=== PATIENT | female | born 1970 | race Caucasian/White ===

== ENCOUNTER 2017-05-25 15:19 | Inpatient (IN) | payer OTHER ==
[2017-05-25] MEDS ORDERED: NITROGLYCERIN-D5W PMX 50 MG in DEXTROSE/WATER 1 250ML.BAG IV STA (15:25)
[2017-05-25] MEDS ORDERED: HEPARIN SODIUM,PORCINE 5,000 UNIT/ML 1 ML VIAL IV STA (15:25)
[2017-05-25] MEDS ORDERED: ATORVASTATIN 80 MG TAB PO STA (15:27)
[2017-05-25 15:33] LABS: Basophils # (A) 0.1 k/uL (0-0.2); Basophils % (A) 1 %; CH 32.5; CHCM 34.5; Eosinophils # (A) 0.1 k/uL (0-0.7); Eosinophils % (A) 2 %; HCT 43.3 % (34.0-46.0); HDW 2.47; HGB 14.9 gm/dL (11.4-16.0); Luc % (Auto) 2; Lymphocytes # (A) 2.4 k/uL (1.0-4.8); Lymphocytes % (A) 29 %; MCH 32.7 pg (25.0-35.0); MCHC 34.5 g/dL (31.0-37.0); MCV 94.8 fL (80.0-100.0); Mean Platelet Volume 7.8; Monocytes # (A) 0.5 k/uL (0-1.0); Monocytes % (A) 6 %; Neutrophils # (A) 5.1 k/uL (1.3-7.7); Neutrophils % (A) 61 %; RBC 4.57 m/uL (3.80-5.40); RDW 13.1 % (11.5-15.5); WBC 8.4 k/uL (3.8-10.6); WBC (Perox) 8.54
--- NOTE | 2017-05-25 15:39 | ED ---
Chest Pain HPI - General Chief Complaint: Chest Pain Stated Complaint: Chest Pain Time Seen by Provider: 05/25/17 15:19 Source: patient, RN notes reviewed Mode of arrival: EMS Limitations: no limitations - History of Present Illness Initial Comments: This a 46-year-old female history of thyroid disease who is a smoker of 4 cigarettes a day who states he had the onset at about 12 noon yesterday of retrosternal chest pain. She states it was low-grade yesterday but got much worse today associated with nausea she was given 4 g of Zofran by EMS the pain was 10/10 severity he got better with nitro 2 was down to 8. The pain was retrosternal tightness and pressure. No overt fevers or chills. The patient that was her anxiety acting up and did not seek treatment for it. There is a family history of heart disease at early age. She has no known heart disease of her self up until today's episode. EKGs done by EMS showed ST elevation in leads II, III, and F aVF with reciprocal changes in aVL. MD Complaint: chest pain - Related Data Home Medications Medication Instructions Recorded Confirmed Ibuprofen [Motrin] 600 mg PO Q8HR PRN 04/16/16 04/16/16 Levothyroxine Sodium [Synthroid] 112 mcg PO DAILY 04/16/16 04/16/16 Lisinopril [Zestril] 20 mg PO DAILY 04/16/16 04/16/16 Ondansetron [Zofran] 4 mg PO Q12HR PRN 04/16/16 04/16/16 diphenhydrAMINE HCL [Benadryl] 25 mg PO Q8H PRN 04/16/16 04/16/16 Previous Rx's Medication Instructions Recorded Cyclobenzaprine [Flexeril] 10 mg PO TID #20 tab 04/16/16 Ibuprofen [Motrin] 600 mg PO Q6HR PRN #40 day 04/16/16 Ondansetron Odt [Zofran ODT] 4 mg PO Q8HR PRN #15 tab 04/16/16 Allergies Allergy/AdvReac Type Severity Reaction Status Date / Time No Known Allergies Allergy Verified 05/25/17 15:26 Review of Systems ROS Statement: Those systems with pertinent positive or pertinent negative responses have been documented in the HPI. ROS Other: All systems not noted in ROS Statement are negative. EKG Findings - EKG Results: EKG: interpreted by [facility], sinus rhythm (Sinus rhythm rate of 81. Interval 128 QRS duration 82 QT since QTC of/473 ST elevation in leads II, III, and F aVF with reciprocal aVL ST depression.) Past Medical History Past Medical History: Thyroid Disorder History of Any Multi-Drug Resistant Organisms: None Reported Past Surgical History: Orthopedic Surgery Additional Past Surgical History / Comment(s): thyroidectomy Past Psychological History: Anxiety Smoking Status: Current every day smoker Past Alcohol Use History: Rare Past Drug Use History: None Reported General Exam - General Exam Comments Initial Comments: This is a well-developed well-nourished awake alert oriented history female she is very anxious and appears to be in distress Limitations: no limitations General appearance: alert, anxious, in distress Head exam: Present: atraumatic, normocephalic, normal inspection Eye exam: Present: normal appearance, PERRL, EOMI. Absent: scleral icterus, conjunctival injection, periorbital swelling ENT exam: Present: normal exam, mucous membranes moist Neck exam: Present: normal inspection. Absent: tenderness, meningismus, lymphadenopathy Respiratory exam: Present: normal lung sounds bilaterally. Absent: respiratory distress, wheezes, rales, rhonchi, stridor Cardiovascular Exam: Present: regular rate, normal rhythm, normal heart sounds. Absent: systolic murmur, diastolic murmur, rubs, gallop, clicks GI/Abdominal exam: Present: soft, normal bowel sounds. Absent: distended, tenderness, guarding, rebound, rigid Extremities exam: Present: normal inspection, full ROM, normal capillary refill. Absent: tenderness, pedal edema, joint swelling, calf tenderness Back exam: Present: normal inspection Neurological exam: Present: alert, oriented X3, CN II-XII intact Psychiatric exam: Present: normal affect, normal mood Skin exam: Present: warm, dry, intact, normal color. Absent: rash Course Vital Signs 05/25/17 05/25/17 05/25/17 15:22 15:26 15:31 Temperature 97 F L Pulse Rate 85 87 84 Respiratory 18 20 18 Rate Blood Pressure 181/101 171/101 169/119 O2 Sat by Pulse 97 98 99 Oximetry 05/25/17 05/25/17 05/25/17 15:39 15:43 15:50 Temperature Pulse Rate 79 88 Respiratory 18 20 Rate Blood Pressure 176/115 170/113 170/117 O2 Sat by Pulse 96 96 Oximetry - Reevaluation(s) Reevaluation #1: 05/25/17 15:39 A STEMI alert was immediately called upon arrival. I did discuss the case with Dr. Wei. [facility] has been called and the patient will go to [facility]. I also did discuss the case with Dr. Magana the hospitalist with the patient will be admitted to this time patient does not have a current staff physician. Reevaluation #2: 05/25/17 15:45 The patient is still having 10/10 chest pain the nitroglycerin he has been increased. Dr. Magana has come to the emergency department to evaluate the patient. Chest Pain MDM - MDM I did review the imaging and report no acute findings. Patient did go to the [facility]. Critical Care Time Critical Care Time: Yes Critical Care Time: 31 minutes of critical care time which includes monitoring the initial EMS run and discussed with paramedics history physical labs x-rays on the patient reevaluation patient several occasions for responsive therapy. Discussion with the admitting physician as well as customer project manager. Documentation of the above. Disposition Clinical Impression: ST elevation myocardial infarction (STEMI), Chest pain Disposition: ADMITTED IP TO THIS HOSP Condition: Critical Referrals: Nonstaff,Physician [Primary Care Provider] - 1-2 days
[2017-05-25 15:42] LABS: Partial Thromboplastin Time 26.4 sec (22.0-30.0); Prothrombin Time 10.2 sec (9.0-12.0)
[2017-05-25 15:43] LABS: ALT 24 U/L (9-52); AST 16 U/L (14-36); Alkaline Phosphatase 84 U/L (38-126); Anion Gap 11 mmol/L; Blood Urea Nitrogen 9 mg/dL (7-17); Calcium 9.3 mg/dL (8.4-10.2); Carbon Dioxide 22 mmol/L (22-30); Chloride 106 mmol/L (98-107); Glucose 111 mg/dL (74-99); Non-African American GFR(MDRD) >60 (>60 ml/min/1.73 sqM); Potassium 4.4 mmol/L (3.5-5.1); Sodium 139 mmol/L (137-145); Total Bilirubin 0.7 mg/dL (0.2-1.3); Total Protein 7.7 g/dL (6.3-8.2)
--- NOTE | 2017-05-25 15:44 | XR ---
EXAMINATION TYPE: XR chest 1V DATE OF EXAM: 05/25/2017 COMPARISON: NONE HISTORY: Chest pain radiating to the lower extremities. TECHNIQUE: Single frontal view of the chest is obtained. FINDINGS: There is no focal air space opacity, pleural effusion, or pneumothorax seen. The cardiac silhouette size is within normal limits. The osseous structures are intact. IMPRESSION: No acute cardiopulmonary process.
[2017-05-25] MEDS ORDERED: LIDOCAINE 2% INJ 20 MG/ML (20 ML MDV) ONE (16:00)
[2017-05-25] MEDS ORDERED: MIDAZOLAM 2 MG/2 ML VIAL IV ONE (16:02)
[2017-05-25 16:03] LABS: Creatine Kinase 58 U/L (30-135)
[2017-05-25] MEDS ORDERED: SODIUM CHLORIDE 0.9% 500 ML IV ONE ×2 (16:04→16:39)
[2017-05-25] MEDS ORDERED: MIDAZOLAM 2 MG/2 ML VIAL ONE (16:04)
[2017-05-25] MEDS ORDERED: LIDOCAINE 2% INJ 20 MG/ML SQ ONE (16:07)
[2017-05-25] MEDS ORDERED: HYDROmorphone 2 MG/ML 1 ML SYRINGE IV ONE (16:09)
[2017-05-25] MEDS ORDERED: ASPIRIN 81 MG PO STA (16:09)
[2017-05-25] MEDS ORDERED: HYDROmorphone 2 MG/ML 1 ML SYRINGE ONE (16:11)
[2017-05-25] MEDS ORDERED: BIVALIRUDIN BOLUS 250 MG/50 ML IV ONE (16:15)
[2017-05-25 16:16] LABS: Creatine Kinase MB <0.2 ng/mL (0.0-2.4)
[2017-05-25] MEDS ORDERED: BIVALIRUDIN 250 MG in SODIUM CHLORIDE 0.9% 50 ML IV ONE (16:17)
[2017-05-25] MEDS ORDERED: CLOPIDOGREL 75 MG TAB PO ONE (16:20)
[2017-05-25] MEDS ORDERED: CLOPIDOGREL 75 MG TAB ONE (16:20)
--- NOTE | 2017-05-25 16:29 | P.HPIM ---
History of Present Illness H&P Date: 05/25/17 Chief Complaint: chest pain This a 46-year-old occasion female history of thyroid disease, hypertension who is a smoker of 4 cigarettes a day who states he had the onset at about 12 noon yesterday of retrosternal left-sided chest pain described as severe chest pressure or radiation to her neck and back that began at rest and was not associated with exertion. She states it was low-grade yesterday but got much worse today associated with nausea and shortness of breath she was given 4 g of Zofran by EMS the pain was 10/10 severity he got better with nitro 2 was down to 8. The pain was retrosternal tightness and pressure. No overt fevers or chills. The patient that was her anxiety acting up and did not seek treatment for it. There is a family history of heart disease at early age. Some generalized weakness, denies palpitations or presyncope She has no known heart disease of her self up until today's episode. EKGs done by EMS showed ST elevation in leads II, III, and F aVF with reciprocal changes in aVL. Review of Systems All other 14 point review of systems negative except per HPI Past Medical History Past Medical History: Thyroid Disorder History of Any Multi-Drug Resistant Organisms: None Reported Past Surgical History: Orthopedic Surgery Additional Past Surgical History / Comment(s): thyroidectomy Past Psychological History: Anxiety Smoking Status: Current every day smoker Past Alcohol Use History: Rare Past Drug Use History: None Reported Medications and Allergies Home Medications Medication Instructions Recorded Confirmed Type Levothyroxine Sodium [Synthroid] 112 mcg PO DAILY 04/16/16 05/25/17 History Lisinopril [Zestril] 20 mg PO DAILY 04/16/16 05/25/17 History Allergies Allergy/AdvReac Type Severity Reaction Status Date / Time No Known Allergies Allergy Verified 05/25/17 15:26 Physical Exam Vitals: Vital Signs Temp Pulse Resp BP Pulse Ox 05/25/17 15:50 170/117 05/25/17 15:43 88 20 170/113 96 05/25/17 15:39 79 18 176/115 96 05/25/17 15:31 84 18 169/119 99 05/25/17 15:26 87 20 171/101 98 05/25/17 15:22 97 F L 85 18 181/101 97 Intake and Output 05/25/17 05/25/17 05/25/17 06:59 14:59 22:59 Intake Total 0.2 Balance 0.2 Intake: Intake, IV Titration 0.2 Amount Nitroglycerin-D5w Pmx 50 0.2 mg In Dextrose/Water 1 250ml.bag @ 5 MCG/MIN 1.5 mls/hr IV .Q24H STA Rx#: [id number] Other: Weight 82.1 kg Patient Weight 05/26/17 06:59 Weight 82.1 kg Constitutional: Moderate distress due to pain conversant, pleasant Eyes: Anicteric sclerae, moist conjunctiva, no lid-lag, PERRLA ENMT: NC/AT,Oropharynx clear, no erythema, exudates Neck:Supple, FROM, no masses, or JVD, No carotid bruits; No thyromegaly Lungs: Clear to auscultation, Clear to percussion, Normal respiratory effort, no accessory muscle use Cardiovascular: Heart regular in rate and rhythm, No murmurs, gallops, or rubs no peripheral edema Abdominal: Soft Nontender, nom distended, no guarding, no rebound or rigidity, Normoactive bowel sounds No hepatomegaly, No splenomegaly, No palpable mass No abdominal wall hernia noted Skin: Normal temperature, tone, texture, turgor, No induration No subcutaneous nodules, No rash, lesions, No ulcers Extremities:No digital cyanosis No clubbing, Pedal pulses intact and symmetrical Radial pulses intact and symmetrical Normal gait and station, No calf tenderness Psychiatric: Alert and oriented to person, place and time, Appropriate affect Intact judgement Neuro: Muscles Strength 5/5 in all 4 extremities, Sensation to light touch grossly present throughout, Cranial nerves II-XII grossly intact. No focal sensory deficits Results CBC & Chem 7: 05/25/17 15:27 05/25/17 15:27 Labs: Abnormal Lab Results - Last 24 Hours (Table) 05/25/17 Range/Units 15:27 Glucose 111 H (74-99) mg/dL Assessment and Plan (1) ST elevation myocardial infarction (STEMI) Narrative/Plan: Acute coronary syndrome ST elevation ME * elevation in leads II, III, and F aVF with reciprocal aVL ST depression, troponins pending * The patient received aspirin and nitroglycerin on route and is currently on a nitroglycerin drip and a heparin bolus interventional cardiology Dr. Wei, scheduled to take the patient to the kiln labourer * Continue STEMI orders post cath in the ICU * We'll initiate beta shazia therapy, continue aspirin and statin therapy Status: Acute (2) Accelerated hypertension Status: Acute (3) Acute headache Status: Acute (4) Smoking Status: Chronic (5) Hypothyroid Status: Chronic Plan: Continue to follow clinical course Time with Patient: Greater than 30
[2017-05-25] MEDS: NITROGLYCERIN 1000MCG/10ML SYRINGE INTRACORON ONE ×2 (16:30→16:45)
[2017-05-25] MEDS ORDERED: IOHEXOL 350 MG/ML 125ML BOTTLE INJ ONE (16:58)
[2017-05-25] MEDS ORDERED: ATROPINE SULFATE 0.1 MG/ML 10ML SYRINGE IV PRN (17:08)
[2017-05-25] MEDS ORDERED: MAG HYDROX/AL HYDROX/SIMETH 30 ML CUP PO PRN (17:08)
[2017-05-25] MEDS ORDERED: RX INFO: IV CONTRAST WAS GIVEN 1 EACH MISC MISCELLANE PRN (17:08)
[2017-05-25] MEDS ORDERED: NITROGLYCERIN SL TABS 0.4 MG TAB SUBLINGUAL PRN (17:08)
--- NOTE | 2017-05-25 17:14 | P.CRDCN ---
History of Present Illness Consult date: 05/25/17 Chief complaint: Chest discomfort History of present illness: This is a pleasant 46-year-old female patient with a past medical history significant for hypertension, dyslipidemia, and history of smoking, presented to the emergency room complaining of chest discomfort. The patient was in her usual state of health did about 2 days ago when she started experiencing chest discomfort as a pressure across her chest. The symptoms got worse today and she decided to come to the emergency room. She was found to be in acute inferior ST elevation myocardial infarction. In review of that she underwent an emergent heart catheterization which showed acute total occlusion of the left circumflex which was stented with a good angiographic results. Beside that, she was found to have intermediate to severe disease involving the RCA as well as LAD. By the end of the procedure the patient was completely pain-free. Past Medical History Past Medical History: Thyroid Disorder History of Any Multi-Drug Resistant Organisms: None Reported Past Surgical History: Orthopedic Surgery Additional Past Surgical History / Comment(s): thyroidectomy Past Psychological History: Anxiety Smoking Status: Current every day smoker Past Alcohol Use History: Rare Past Drug Use History: None Reported Medications and Allergies Home Medications Medication Instructions Recorded Confirmed Type Levothyroxine Sodium [Synthroid] 112 mcg PO DAILY 04/16/16 05/25/17 History Lisinopril [Zestril] 20 mg PO DAILY 04/16/16 05/25/17 History Allergies Allergy/AdvReac Type Severity Reaction Status Date / Time No Known Allergies Allergy Verified 05/25/17 15:26 Physical Exam Vitals: Vital Signs Temp Pulse Resp BP Pulse Ox 05/25/17 15:50 170/117 05/25/17 15:43 88 20 170/113 96 05/25/17 15:39 79 18 176/115 96 05/25/17 15:31 84 18 169/119 99 05/25/17 15:26 87 20 171/101 98 05/25/17 15:22 97 F L 85 18 181/101 97 Intake and Output 05/25/17 05/25/17 05/25/17 06:59 14:59 22:59 Intake Total 400.2 Balance 400.2 Intake: IV 400 Intake, IV Titration 0.2 Amount Nitroglycerin-D5w Pmx 50 0.2 mg In Dextrose/Water 1 250ml.bag @ 5 MCG/MIN 1.5 mls/hr IV .Q24H STA Rx#: [id number] Other: Weight 82.1 kg Patient Weight 05/26/17 06:59 Weight 82.1 kg - Constitutional General appearance: no acute distress - Respiratory Respiratory: bilateral: CTA - Cardiovascular Rhythm: regular Heart sounds: normal: S1, S2 Results 05/25/17 15:27 05/25/17 15:27 Cardiac Enzymes 05/25/17 05/25/17 Range/Units 15:27 15:27 AST 16 (14-36) U/L CK-MB (CK-2) <0.2 (0.0-2.4) ng/mL Troponin I 0.040 H* (0.000-0.034) ng/mL Coagulation 05/25/17 Range/Units 15:27 PT 10.2 (9.0-12.0) sec APTT 26.4 (22.0-30.0) sec CBC 05/25/17 Range/Units 15:27 WBC 8.4 (3.8-10.6) k/uL RBC 4.57 (3.80-5.40) m/uL Hgb 14.9 (11.4-16.0) gm/dL Hct 43.3 (34.0-46.0) % Plt Count 285 (150-450) k/uL Comprehensive Metabolic Panel 05/25/17 Range/Units 15:27 Sodium 139 (137-145) mmol/L Potassium 4.4 (3.5-5.1) mmol/L Chloride 106 (98-107) mmol/L Carbon Dioxide 22 (22-30) mmol/L BUN 9 (7-17) mg/dL Creatinine 0.92 (0.52-1.04) mg/dL Glucose 111 H (74-99) mg/dL Calcium 9.3 (8.4-10.2) mg/dL AST 16 (14-36) U/L ALT 24 (9-52) U/L Alkaline Phosphatase 84 (38-126) U/L Total Protein 7.7 (6.3-8.2) g/dL Albumin 4.3 (3.5-5.0) g/dL Current Medications Generic Name Dose Route Start Last Admin Trade Name Freq PRN Reason Stop Dose Admin Al Hydroxide/Mg Hydroxide 30 ml 05/25/17 17:08 Maalox PO Q4HR PRN Heartburn Aspirin 325 mg 05/26/17 09:00 Aspirin PO DAILY [facility] Atorvastatin Calcium 80 mg 05/25/17 21:00 Lipitor PO HS [facility] Atropine Sulfate 0.5 mg 05/25/17 17:08 Atropine IV ONCE PRN Symptomatic Bradycardia Clopidogrel Bisulfate 75 mg 05/26/17 09:00 Plavix PO DAILY [facility] Sodium Chloride 1,000 mls @ 75 mls/hr 05/25/17 17:15 Saline 0.9% IV 05/26/17 01:16 .[id number] [facility] Lisinopril 10 mg 05/26/17 09:00 Zestril PO DAILY [facility] Metoprolol Tartrate 25 mg 05/25/17 21:00 Lopressor PO BID [facility] Miscellaneous Information 1 each 05/25/17 17:08 Rx Info: Iv Contrast Was Given MISCELLANE 05/27/17 17:08 DAILY PRN Per Protocol Nitroglycerin 0.4 mg 05/25/17 17:08 Nitrostat SUBLINGUAL Q5M PRN Chest Pain Zolpidem Tartrate 5 mg 05/25/17 17:08 Ambien PO HS PRN Insomnia Intake and Output 05/25/17 05/25/17 05/25/17 06:59 14:59 22:59 Intake Total 400.2 Balance 400.2 Intake: IV 400 Intake, IV Titration 0.2 Amount Nitroglycerin-D5w Pmx 50 0.2 mg In Dextrose/Water 1 250ml.bag @ 5 MCG/MIN 1.5 mls/hr IV .Q24H [facility] Rx#: [id number] Other: Weight 82.1 kg Patient Weight 05/26/17 06:59 Weight 82.1 kg 05/25/17 15:27 05/25/17 15:27 Assessment and Plan Plan: This is a pleasant 46-year-old female patient was hypertension, dyslipidemia, and smoking presented to the hospital was a chest discomfort and was diagnosed with acute inferior ST elevation myocardial infarction be she underwent an emergent heart catheterization and was found to have an acute total occlusion of the left circumflex which was opened and stented with a good angiographic results and without any complication. The patient will be admitted to the intensive care unit. She will be on dual antiplatelet therapy as well as a statin. We will obtain an echocardiogram to assess the LV function. Continue following up with her. Risk factors modification as well as well as smoking cessation.
[2017-05-25] MEDS ORDERED: SODIUM CHLORIDE 0.9% 1,000 ML IV SCH (17:15)
[2017-05-25 17:32] LABS: Glucose,Whole Blood 97 mg/dL (75-99)
--- NOTE | 2017-05-25 17:47 | CC ---
CARDIAC CATHETERIZATION REPORT DATE OF SERVICE: 05/25/2017. PERFORMING PHYSICIAN: Henry Wei MD, Senior Software Architect. PROCEDURE PERFORMED: 1. Selective right and left coronary angiogram. 2. Successful stenting of the mid-left circumflex coronary artery using 225 x 23 mm Xience JOSE with good angiographic results. 3. Left heart catheterization. 4. Left ventriculography. INDICATION: This is a pleasant 46-year-old, female patient who presented to the hospital with chest discomfort and was found to be in acute inferior ST-elevation myocardial infarction. An emergent heart catheterization was recommended. APPROACH: Right common femoral artery. COMPLICATION: None. LEVEL OF SEDATION: Moderate with sedation length of 55 minutes. PROCEDURE DESCRIPTION: After obtaining an informed consent, the patient was brought to the [facility]. The right common femoral artery was cannulated using micropuncture technique, and a micropuncture wire passed easily. Then I placed a 6-[place] sheath in the right common femoral artery. Subsequently, I did selective right and left coronary angiogram. The right coronary angiogram was initially attempted using JR4, and then Celestino right posterior, but I was able to engage the right coronary artery because of the posterior takeoff. I was finally able to get it using an Amplatzer 1 catheter. Selective left coronary angiogram was performed using JL4 catheter. After that, we did perform angioplasty on the left circumflex. Please see a separate paragraph for that. Subsequently, I did left heart catheterization and then LV gram using 6-[place] pigtail catheter. The procedure was completed without any complication. SELECTIVE CORONARY ANGIOGRAM: 1. The right coronary artery is a large caliber vessel and it is a dominant vessel. The proximal RCA by the bifurcation of the acute marginal branch appeared to have a lesion in the range of 60% to 70%. The mid RCA seems to be angiographically normal. The RCA distally seems to be normal and bifurcates into PDA and PLV branches. Both are angiographically normal. 2. The left main is angiographically normal. It bifurcates into the circumflex and left anterior descending artery. 3. The left circumflex is a large caliber vessel and it is a nondominant vessel. The proximal circ appeared to have mild disease only. The mid circ by the bifurcation of the bifurcation of a large acute marginal branch appeared to be acutely and totally occluded. The first OM branch is a large caliber vessel with mild disease only. 4. The left anterior descending artery. The proximal LAD appeared to be appears to be diffusely diseased up to about 50%. The mid LAD after the bifurcation of the first diagonal branch appears to be also diffuse diseased up to about 50% to 60%. The LAD distally appeared to be angiographically normal. The LAD gives rise into 2 medium-sized diagonal branches with mild disease only. 5. HEMODYNAMICS: The left ventricular end-diastolic pressure was 16 mmHg. No gradient was identified across the aortic valve. 6. Left ventriculography was performed in the REDD projection and using a power injection. The left ventricular systolic function is low normal with an ejection fraction of 50% with mild basal inferior hypokinesia. 7. PCI of the left circumflex. Anticoagulation was initiated using Angiomax. Subsequently, I took JL4 guiding catheter and the left main was engaged. A whisper wire was used to wire the left circumflex and crossed the acute total occlusion. Initially, I did balloon angioplasty using 2 0 x 12 mm balloon and subsequently, I tried to advance to 225 x 23 mm Xience but the stent will not cross the lesion in spite of double wiring. At that point, I decided to balloon again using 2.0 x 20 mm balloon. Subsequently, I was able to advance the stent to the left circumflex where the stent was positioned under fluoroscopy guidance and deployed under 14 atmospheres for 30 seconds. The following angiogram showed good angiographic results without perforation and without dissection. The procedure was completed without any complication. CONCLUSION: 1. Acute inferior ST-elevation myocardial infarction. 2. Intermediate disease involving the proximal right coronary artery which has a posterior takeoff. 3. Normal left main coronary artery. 4. Acute total occlusion of the left circumflex in the midportion which was stented with good angiographic results. 5. Intermediate to severe disease involving the mid left anterior descending artery. 6. Low normal left ventricular systolic function. 7. Normal left ventricular end-diastolic pressure. POSTPROCEDURE MANAGEMENT: 1. Dual anti-platelet therapy. 2. Risk factor modifications. 3. Follow up with the patient. MMODL / IJN: [id number] /
[2017-05-25 18:39] VITALS: BMI 34.6
[2017-05-25] MEDS: HYDROmorphone 1 MG/ML 1 ML SYRINGE IVP PRN (20:40)
[2017-05-25] MEDS: METOPROLOL TARTRATE 25 MG TAB PO SCH (20:40)
[2017-05-25] MEDS ORDERED: ATORVASTATIN 80 MG TAB PO SCH (21:00)
[2017-05-25] MEDS ORDERED: METOPROLOL TARTRATE 25 MG TAB PO SCH ×2 (21:00)
[2017-05-25 21:49] LABS: Creatine Kinase MB 32.4 ng/mL (0.0-2.4); Troponin I 16.4 ng/mL (0.000-0.034)
[2017-05-25] MEDS: ZOLPIDEM 5 MG TAB PO PRN (23:44)
[2017-05-26] MEDS: HYDROmorphone 1 MG/ML 1 ML SYRINGE IVP PRN ×2 (01:44→21:14)
[2017-05-26] MEDS: ACETAMINOPHEN TAB 325 MG TAB PO PRN ×2 (01:45→15:30)
[2017-05-26 04:31] LABS: Basophils % (A) 0 %; CHCM 34.1; Eosinophils # (A) 0.1 k/uL (0-0.7); Eosinophils % (A) 1 %; HCT 40.3 % (34.0-46.0); HDW 2.45; Luc # (Auto) 0.13; Luc % (Auto) 2; Lymphocytes % (A) 23 %; MCH 31.4 pg (25.0-35.0); MCHC 32.2 g/dL (31.0-37.0); MCV 97.4 fL (80.0-100.0); Mean Platelet Volume 8.4; Monocytes # (A) 0.4 k/uL (0-1.0); Monocytes % (A) 5 %; Neutrophils % (A) 69 %; RBC 4.14 m/uL (3.80-5.40); WBC 8.6 k/uL (3.8-10.6); WBC (Perox) 9.04
[2017-05-26 04:43] LABS: Anion Gap 7 mmol/L; Blood Urea Nitrogen 7 mg/dL (7-17); Calcium 8.4 mg/dL (8.4-10.2); Carbon Dioxide 25 mmol/L (22-30); Chloride 107 mmol/L (98-107); Cholesterol 253 mg/dL (<200); Glucose 90 mg/dL (74-99); HDL Cholesterol 42 mg/dL (40-60); Non-African American GFR(MDRD) >60 (>60 ml/min/1.73 sqM); Potassium 4.1 mmol/L (3.5-5.1); Sodium 139 mmol/L (137-145)
[2017-05-26 05:16] LABS: Creatine Kinase MB 37.1 ng/mL (0.0-2.4); Troponin I 17.4 ng/mL (0.000-0.034)
[2017-05-26] MEDS: LEVOTHYROXINE 112 MCG TAB PO SCH (06:33)
[2017-05-26] MEDS ORDERED: ALPRAZolam 0.25 MG TAB PO PRN (08:30)
[2017-05-26] MEDS: HEPARIN SODIUM,PORCINE 5,000 UNIT/ML 1 ML VIAL SQ SCH ×2 (08:43→15:31)
[2017-05-26] MEDS: LISINOPRIL 20 MG TAB PO SCH (08:44)
[2017-05-26] MEDS: ASPIRIN 325 MG TAB PO SCH (08:44)
[2017-05-26] MEDS: ATORVASTATIN 80 MG TAB PO SCH (08:44)
[2017-05-26] MEDS ORDERED: ATORVASTATIN 80 MG TAB PO SCH (09:00)
[2017-05-26] MEDS ORDERED: LISINOPRIL 20 MG TAB PO SCH (09:00)
[2017-05-26] MEDS ORDERED: LISINOPRIL 10 MG TAB PO SCH (09:00)
[2017-05-26] MEDS ORDERED: ASPIRIN 325 MG TAB PO SCH ×2 (09:00)
[2017-05-26] MEDS ORDERED: LEVOTHYROXINE 112 MCG TAB PO SCH (09:00)
[2017-05-26] MEDS: CLOPIDOGREL 75 MG TAB PO SCH (09:08)
[2017-05-26] MEDS: METOPROLOL TARTRATE 25 MG TAB PO SCH ×2 (09:45→20:45)
--- NOTE | 2017-05-26 09:47 | P.PN ---
Subjective Principal diagnosis: The patient is a 46-year-old female that presented with chest pain and found to have a non-ST elevation ID with positive troponins and EKG findings suggestive of ischemia in leads II, III, and F aVF, patient was taken to the clinical lab clerk by Dr. Mcallister and was found to have a occluded left circumflex artery that required stenting, with some noted coronary disease in the LAD and RCA. Patient does report some mild chest pain today denies any shortness of breath pain is rated as a 3 out of 10. 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 But having ongoing headaches pretty much daily over the last 2 years , reports difficulty maintaining employment secondary to her headaches and she has become depressed and anxious previously on Xanax. Objective - Vital Signs Vital signs: Vital Signs Temp 97.9 F 05/26/17 08:00 Pulse 61 05/26/17 08:00 Resp 15 05/26/17 08:00 BP 114/78 05/26/17 08:00 Pulse Ox 94 L 05/26/17 08:52 Intake & Output 05/25/17 05/26/17 05/26/17 18:59 06:59 18:59 Intake Total 489.2 1200 520 Output Total 0 0 Balance 489.2 1200 520 Weight 97.4 kg 87 kg Intake: IV 489 Intake, IV Titration 0.2 900 Amount Nitroglycerin-D5w Pmx 50 0.2 mg In Dextrose/Water 1 250ml.bag @ 5 MCG/MIN 1.5 mls/hr IV .Q24H STA Rx#: [id number] Sodium Chloride 0.9% 1, 900 000 ml @ 75 mls/hr IV . [id number] MARTINEZ Rx#:[id number] Oral 300 520 Output: Urine 0 0 Other: Voiding Method Toilet Toilet # Voids 1 1 - Exam Constitutional: No acute distress, conversant, pleasant Eyes: Anicteric sclerae, moist conjunctiva, no lid-lag, PERRLA ENMT: NC/AT,Oropharynx clear, no erythema, exudates Neck:Supple, FROM, no masses, or JVD, No carotid bruits; No thyromegaly Lungs: Clear to auscultation, Clear to percussion, Normal respiratory effort, no accessory muscle use Cardiovascular: Heart regular in rate and rhythm, No murmurs, gallops, or rubs no peripheral edema Abdominal: Soft Nontender, nom distended, no guarding, no rebound or rigidity, Normoactive bowel sounds No hepatomegaly, No splenomegaly, No palpable mass No abdominal wall hernia noted Skin: Normal temperature, tone, texture, turgor, No induration No subcutaneous nodules, No rash, lesions, No ulcers Extremities:No digital cyanosis No clubbing, Pedal pulses intact and symmetrical Radial pulses intact and symmetrical Normal gait and station, No calf tenderness Psychiatric: Alert and oriented to person, place and time, Appropriate affect Intact judgement Neuro: Muscles Strength 5/5 in all 4 extremities, Sensation to light touch grossly present throughout, Cranial nerves II-XII grossly intact. No focal sensory deficits - Labs CBC & Chem 7: 05/26/17 03:54 05/26/17 03:54 Labs: Abnormal Lab Results - Last 24 Hours (Table) 05/25/17 05/25/17 05/25/17 Range/Units 15:27 15:27 21:01 Glucose 111 H (74-99) mg/dL Total Creatine Kinase 660 H (30-135) U/L CK-MB (CK-2) 32.4 H* (0.0-2.4) ng/mL Troponin I 0.040 H* 16.400 H* (0.000-0.034) ng/mL Cholesterol (<200) mg/dL LDL Cholesterol, Calc (0-99) mg/dL 05/26/17 05/26/17 Range/Units 03:54 03:54 Glucose (74-99) mg/dL Total Creatine Kinase 764 H (30-135) U/L CK-MB (CK-2) 37.1 H* (0.0-2.4) ng/mL Troponin I 17.400 H* (0.000-0.034) ng/mL Cholesterol 253 H (<200) mg/dL LDL Cholesterol, Calc 189 H (0-99) mg/dL Assessment and Plan (1) ST elevation myocardial infarction (STEMI) Narrative/Plan: Acute coronary syndrome ST elevation ID * elevation in leads II, III, and F aVF with reciprocal aVL ST depression, troponins elevated * interventional cardiology Dr. Wei performed catheterization with stenting of the left circumflex artery that was totally occluded, noticeable coronary disease in the RCA and LAD * Continue STEMI orders post cath in the ICU WILL REINITIATE HEPARIN today * We'll continue beta shazia therapy, continue dual antiplatelet therapy with aspirin and Plavix and continue statin therapy Status: Acute (2) Hypertension Narrative/Plan: Blood pressure much better controlled today now stable Status: Chronic (3) Dyslipidemia (high LDL; low HDL) Narrative/Plan: Currently uncontrolled * Continue statin therapy for goal less than 70 Status: Acute (4) Smoking Status: Chronic (5) Headache, migraine Narrative/Plan: We'll order a MRI of the head given her history of chronic migraines starting 2 years ago * Negative will consider adding prophylactic therapy with Topamax versus propranolol would appreciate cardiology recommendations, will stay away from any abortive therapy with Imitrex as the patient does have coronary disease and is here from a STEMI Status: Acute (6) Anxiety and depression Narrative/Plan: We'll start Xanax 0.25 mg by mouth 3 times a day when necessary Status: Acute (7) Hypothyroid Status: Chronic
--- NOTE | 2017-05-26 10:17 | P.PN ---
Subjective Principal diagnosis: Acute inferior ST elevation [place] This is a pleasant 46-year-old female patient with a past medical history significant for hypertension, dyslipidemia, and history of smoking, presented to the emergency room complaining of chest discomfort. The patient was in her usual state of health did about 2 days ago when she started experiencing chest discomfort as a pressure across her chest. The symptoms got worse today and she decided to come to the emergency room. She was found to be in acute inferior ST elevation myocardial infarction. In review of that she underwent an emergent heart catheterization which showed acute total occlusion of the left circumflex which was stented with a good angiographic results. Beside that, she was found to have intermediate to severe disease involving the RCA as well as LAD. On follow-up with the patient today, she is pain-free. The right groin is soft and nontender and without any bruises. She continues to be on dual antiplatelet as well as statin. We will follow-up with the echocardiogram. Objective - Vital Signs Vital signs: Vital Signs Temp 97.9 F 05/26/17 08:00 Pulse 70 05/26/17 10:00 Resp 19 05/26/17 10:00 BP 105/81 05/26/17 10:00 Pulse Ox 97 05/26/17 10:00 Intake & Output 05/25/17 05/26/17 05/26/17 18:59 06:59 18:59 Intake Total 489.2 1200 880 Output Total 0 0 Balance 489.2 1200 880 Weight 97.4 kg 87 kg Intake: IV 489 Intake, IV Titration 0.2 900 Amount Nitroglycerin-D5w Pmx 50 0.2 mg In Dextrose/Water 1 250ml.bag @ 5 MCG/MIN 1.5 mls/hr IV .Q24H STA Rx#: [id number] Sodium Chloride 0.9% 1, 900 000 ml @ 75 mls/hr IV . [id number] MARTINEZ Rx#:[id number] Oral 300 880 Output: Urine 0 0 Other: Voiding Method Toilet Toilet # Voids 1 1 - Constitutional General appearance: Present: no acute distress - Respiratory Respiratory: bilateral: CTA - Cardiovascular Rhythm: regular Heart sounds: normal: S1, S2 - Labs CBC & Chem 7: 05/26/17 03:54 05/26/17 03:54 Labs: Abnormal Lab Results - Last 24 Hours (Table) 05/25/17 05/25/17 05/25/17 Range/Units 15:27 15:27 21:01 Glucose 111 H (74-99) mg/dL Total Creatine Kinase 660 H (30-135) U/L CK-MB (CK-2) 32.4 H* (0.0-2.4) ng/mL Troponin I 0.040 H* 16.400 H* (0.000-0.034) ng/mL Cholesterol (<200) mg/dL LDL Cholesterol, Calc (0-99) mg/dL TSH (0.465-4.680) mIU/L 05/26/17 05/26/17 05/26/17 Range/Units 03:54 03:54 03:54 Glucose (74-99) mg/dL Total Creatine Kinase 764 H (30-135) U/L CK-MB (CK-2) 37.1 H* (0.0-2.4) ng/mL Troponin I 17.400 H* (0.000-0.034) ng/mL Cholesterol 253 H (<200) mg/dL LDL Cholesterol, Calc 189 H (0-99) mg/dL TSH 58.500 H (0.465-4.680) mIU/L Assessment and Plan Plan: This is a pleasant 46-year-old female patient was hypertension, dyslipidemia, and smoking presented to the hospital was a chest discomfort and was diagnosed with acute inferior ST elevation myocardial infarction be she underwent an emergent heart catheterization and was found to have an acute total occlusion of the left circumflex which was opened and stented with a good angiographic results and without any complication. We'll continue the current medical treatment which included dual antiplatelet therapy and statin. Follow-up with the echocardiogram. The patient can be transferred into selective floor.
[2017-05-26] MEDS: ONDANSETRON 4 MG/2 ML VIAL IVP PRN (16:00)
[2017-05-27] MEDS: HEPARIN SODIUM,PORCINE 5,000 UNIT/ML 1 ML VIAL SQ SCH ×4 (00:27→23:22)
[2017-05-27] MEDS: LEVOTHYROXINE 112 MCG TAB PO SCH (06:28)
[2017-05-27] MEDS: ATORVASTATIN 80 MG TAB PO SCH (09:20)
[2017-05-27] MEDS: ASPIRIN 325 MG TAB PO SCH (09:20)
[2017-05-27] MEDS: METOPROLOL TARTRATE 25 MG TAB PO SCH ×2 (09:20→20:37)
[2017-05-27] MEDS: CLOPIDOGREL 75 MG TAB PO SCH (09:20)
[2017-05-27] MEDS: LISINOPRIL 20 MG TAB PO SCH (09:20)
[2017-05-27] MEDS: ACETAMINOPHEN TAB 325 MG TAB PO PRN ×3 (09:22→21:58)
--- NOTE | 2017-05-27 10:38 | ECHOF ---
Referral Reason:stemi MEASUREMENTS -------- HEIGHT: 165.1 cm WEIGHT: 88.0 kg BP: 124/82 RVIDd: 2.5 cm (< 3.3) IVSd: 1.0 cm (0.6 - 1.1) LVIDd: 4.7 cm (3.9 - 5.3) LVPWd: 0.8 cm (0.6 - 1.1) IVSs: 1.5 cm LVIDs: 2.8 cm LVPWs: 1.6 cm LA Diam: 3.7 cm (2.7 - 3.8) LAESV Index (A-L): 26.15 ml/m Ao Diam: 3.0 cm (2.0 - 3.7) AV Cusp: 1.7 cm (1.5 - 2.6) LA Diam: 3.0 cm (2.7 - 3.8) MV EXCURSION: 19.740 mm (> 18.000) MV EF SLOPE: 110 mm/s (70 - 150) EPSS: 0.5 cm MV E Ab: 0.79 m/s MV DecT: 158 ms MV A Ab: 0.70 m/s MV E/A Ratio: 1.13 RAP: 5.00 mmHg RVSP: 14.63 mmHg FINDINGS -------- Sinus rhythm. This was a technically good study. LV size, wall thickness and systolic function are normal, with an EF greater than 55%. The left ventricular size is normal. The right ventricle is normal in size. Normal LA size by volume 22+/-6 ml/m2. The right atrial size is normal. The aortic valve is trileaflet, and appears structurally normal. No aortic stenosis or regurgitation. Mild mitral regurgitation is present. Mild tricuspid regurgitation present. There is no evidence of pulmonary hypertension. The right ventricular systolic pressure, as measured by Doppler, is 14.63mmHg. There is no pulmonic regurgitation present. The aortic root size is normal. There is no pericardial effusion. CONCLUSIONS -------- 1. LV size, wall thickness and systolic function are normal, with an EF greater than 55%. 2. There is no pericardial effusion. 3. The left ventricular size is normal. 4. The aortic valve is trileaflet, and appears structurally normal. No aortic stenosis or regurgitation. 5. Mild mitral regurgitation is present. 6. Mild tricuspid regurgitation present. 7. There is no evidence of pulmonary hypertension. 8. The right ventricular systolic pressure, as measured by Doppler, is 14.63mmHg. 9. There is no pulmonic regurgitation present. 10. The aortic root size is normal. INK GRINDER: Gin Guillermo RDCS
--- NOTE | 2017-05-27 10:44 | P.PN ---
Subjective Principal diagnosis: Inferior STEMI This is a 46-year-old female with past medical history significant for hypertension, hyperlipidemia, nicotine dependence, she presented to the hospital with an inferior ST elevation myocardial infarction. In view of that patient was taken to the cardiac catheterization lab by Dr. Mcallister where she was found to have an acute total occlusion of the left circumflex which was stented and had good angiographic results. Patient was also found to have intermediate to severe disease involving the RCA and the LAD. Patient was seen and examined this morning, pain-free at present, she did state that she had an episode of discomfort between her scapula while ambulating. EKG shows normal sinus rhythm with no changes from post-PCI. CBC normal. Potassium 4.1, BUN 7, creatinine 0.8. Troponins 0.04, 16.4, 17.4. Echo remains pending. Cholesterol 253, LDL 189, HDL 42, triglycerides 109. TSH 58.5 with a free T4 of 0.4. Blood pressure 125/80 with heart rate in the 80s this morning. Objective - Vital Signs Vital signs: Vital Signs Temp 98.1 F 05/27/17 08:00 Pulse 80 05/27/17 08:48 Resp 18 05/27/17 08:00 BP 125/86 05/27/17 08:48 Pulse Ox 95 05/27/17 08:48 Intake & Output 05/26/17 05/27/17 05/27/17 18:59 06:59 18:59 Intake Total 1360 240 Output Total 0 Balance 1360 240 Weight 88 kg Intake: Oral 1360 240 Output: Urine 0 Other: Voiding Method Toilet Toilet # Voids 1 1 - Exam PHYSICAL EXAMINATION: HEENT: Head is atraumatic, normocephalic. Pupils equal, round. Neck is supple. There is no elevated jugular venous pressure. HEART EXAMINATION: Heart S1, S2 normal. No murmur or gallop heard. CHEST EXAMINATION: Lungs are clear to auscultation and precussion. No chest wall tenderness is noted on palpation or with deep breathing. ABDOMEN: Soft, nontender. Bowel sounds are heard. No organomegaly noted. Right groin soft, no evidence of any hematoma. EXTREMITIES: 2+ peripheral pulses with no evidence of peripheral edema and no calf tenderness noted. NEUROLOGIC patient is awake, alert and oriented -3. . - Labs CBC & Chem 7: 05/26/17 03:54 05/26/17 03:54 Labs: Abnormal Lab Results - Last 24 Hours (Table) 05/26/17 Range/Units 03:54 Free T4 0.40 L (0.78-2.19) ng/dL Assessment and Plan (1) ST elevation myocardial infarction (STEMI) of inferior wall Status: Acute (2) Presence of stent in left circumflex coronary artery Status: Acute (3) Triple vessel coronary artery disease Status: Acute (4) Dyslipidemia (high LDL; low HDL) Status: Acute (5) Hypertension Status: Chronic (6) Hypothyroid Status: Chronic (7) Smoking Status: Chronic Plan: From cardiology's perspective, we will continue the patient on her current medications. She has been encouraged to be up ambulating in the hallway today, she was also instructed to let us know if she has any further symptoms of chest discomfort. We will review her echocardiogram with Doppler study. Patient will require further workup by stress testing or FFR down the road. DNP note has been reviewed, I agree with a documented findings and plan of care. Patient was seen and examined.
--- NOTE | 2017-05-27 11:41 | P.PN ---
Subjective Principal diagnosis: Myocardial infarction 46-year-old female that was admitted with ST elevation NM cardiac catheterization performed by cardiology with stent placement. Today patient is complaining of her chronic headaches. Patient says that yesterday she had been having back pain with exertion which it was interscapular , no palpitations no fever Objective - Vital Signs Vital signs: Vital Signs Temp 97.6 F 05/27/17 04:00 Pulse 80 05/27/17 08:48 Resp 18 05/27/17 04:00 BP 125/86 05/27/17 08:48 Pulse Ox 95 05/27/17 08:48 Intake & Output 05/26/17 05/27/17 05/27/17 18:59 06:59 18:59 Intake Total 1360 Output Total 0 Balance 1360 Weight 88 kg Intake: Oral 1360 Output: Urine 0 Other: Voiding Method Toilet Toilet # Voids 1 1 - Constitutional General appearance: Present: no acute distress - Respiratory Respiratory: bilateral: CTA - Cardiovascular Heart sounds: normal: S1, S2 Abnormal Heart Sounds: Present: systolic murmur - Gastrointestinal General gastrointestinal: Present: normal bowel sounds, tenderness (no tenderness) - Labs CBC & Chem 7: 05/26/17 03:54 05/26/17 03:54 Labs: Abnormal Lab Results - Last 24 Hours (Table) 05/26/17 Range/Units 03:54 TSH 58.500 H (0.465-4.680) mIU/L Free T4 0.40 L (0.78-2.19) ng/dL Assessment and Plan (1) ST elevation myocardial infarction (STEMI) Narrative/Plan: Continue aspirin and Plavix. Discussed with cardiology and they will check echo today and monitor. Discussed evidence of back pain with exertion with cardiology will continue to monitor today Status: Acute (2) Acute headache Narrative/Plan: Seems to be chronic MRI currently pending, continue current plan Status: Acute (3) Hypertension Narrative/Plan: Controlled, continue lisinopril plus metoprolol Status: Chronic (4) Dyslipidemia (high LDL; low HDL) Narrative/Plan: Continue Lipitor Status: Acute (5) Hypothyroid Narrative/Plan: Currently uncontrolled with elevated TSH increase Synthroid Status: Chronic (6) Smoking Narrative/Plan: Cessation counseling provided Status: Chronic Time with Patient: Greater than 30
--- NOTE | 2017-05-27 13:49 | MR ---
MR brain without contrast HISTORY: Chronic migraines Multiplanar multisequence imaging through the brain and correlated to CT brain 04/16/2016 There is no restricted diffusion. There is no hemorrhage or hydrocephalus. Brain signal is remarkable for scattered periventricular and subcortical white matter foci increased signal on inversion recove ry and T2-weighted sequences, there are approximately 30-40 lesions present. No mass effect. Corpus c allosum, pituitary, cervical medullary junction, cerebellopontine angles are unremarkable. There are normal vascular flow voids. The orbits show symmetric appearance. IMPRESSION: Nonspecific white matter demyelination, consider multiple sclerosis, migraine headaches, hypertension, vasculitis and hypertension. Follow-up as indicated.
[2017-05-28 06:08] LABS: Basophils % (A) 0 %; CH 32.1; CHCM 33.4; Eosinophils # (A) 0.2 k/uL (0-0.7); Eosinophils % (A) 2 %; HCT 37.7 % (34.0-46.0); HDW 2.47; HGB 12.8 gm/dL (11.4-16.0); Luc # (Auto) 0.21; Luc % (Auto) 3; Lymphocytes # (A) 3.3 k/uL (1.0-4.8); Lymphocytes % (A) 40 %; MCH 32.8 pg (25.0-35.0); MCV 96.6 fL (80.0-100.0); Mean Platelet Volume 8.3; Monocytes # (A) 0.5 k/uL (0-1.0); Monocytes % (A) 6 %; Neutrophils # (A) 4.1 k/uL (1.3-7.7); Neutrophils % (A) 49 %; RDW 13.3 % (11.5-15.5); WBC 8.3 k/uL (3.8-10.6); WBC (Perox) 8.41
[2017-05-28 06:22] LABS: Anion Gap 9 mmol/L; Blood Urea Nitrogen 8 mg/dL (7-17); Calcium 8.4 mg/dL (8.4-10.2); Carbon Dioxide 23 mmol/L (22-30); Chloride 108 mmol/L (98-107); Glucose 97 mg/dL (74-99); Non-African American GFR(MDRD) >60 (>60 ml/min/1.73 sqM); Potassium 3.8 mmol/L (3.5-5.1); Sodium 140 mmol/L (137-145)
[2017-05-28] MEDS: LEVOTHYROXINE 137 MCG TAB PO SCH (06:39)
[2017-05-28] MEDS: HEPARIN SODIUM,PORCINE 5,000 UNIT/ML 1 ML VIAL SQ SCH ×3 (07:55→23:19)
[2017-05-28] MEDS: ASPIRIN 325 MG TAB PO SCH (07:55)
[2017-05-28] MEDS: CLOPIDOGREL 75 MG TAB PO SCH (07:55)
[2017-05-28] MEDS: ATORVASTATIN 80 MG TAB PO SCH (07:55)
[2017-05-28] MEDS: METOPROLOL TARTRATE 25 MG TAB PO SCH ×2 (07:56→20:16)
[2017-05-28] MEDS: LISINOPRIL 20 MG TAB PO SCH (07:56)
--- NOTE | 2017-05-28 10:21 | P.PN ---
Subjective Principal diagnosis: Inferior STEMI This is a 46-year-old female with past medical history significant for hypertension, hyperlipidemia, nicotine dependence, she presented to the hospital with an inferior ST elevation myocardial infarction. In view of that patient was taken to the cardiac catheterization lab by Dr. Mcallister where she was found to have an acute total occlusion of the left circumflex which was stented and had good angiographic results. Patient was also found to have intermediate to severe disease involving the RCA and the LAD. Patient was seen and examined this morning, pain-free at present, she did state that she had an episode of discomfort between her scapula while ambulating. EKG shows normal sinus rhythm with no changes from post-PCI. CBC normal. Potassium 4.1, BUN 7, creatinine 0.8. Troponins 0.04, 16.4, 17.4. Echo remains pending. Cholesterol 253, LDL 189, HDL 42, triglycerides 109. TSH 58.5 with a free T4 of 0.4. Blood pressure 125/80 with heart rate in the 80s this morning. 05/28/2017 Patient seen and examined this morning, she states that she had 1 episode of chest discomfort after ambulating in the hallway last evening. She also complained of some discomfort while sitting in bed this morning. EKG was performed which showed a normal sinus rhythm with evolutionary inferior ST-T wave changes, post inferior wall DE . Patient does have disease in her right coronary artery as well as LAD. Dr. Mcallister will review her films and decide on whether to perform FFR with possible stenting of those vessels today. Blood pressure 120/70 this morning, heart rate in the 50s. CBC normal, potassium 3.8 , BUN 8, creatinine 0.9. Objective - Vital Signs Vital signs: Vital Signs Temp 97.3 F L 05/28/17 04:00 Pulse 58 L 05/28/17 04:00 Resp 16 05/28/17 04:00 BP 122/71 05/28/17 04:00 Pulse Ox 95 05/28/17 04:00 Intake & Output 05/27/17 05/28/17 05/28/17 18:59 06:59 18:59 Intake Total 480 Balance 480 Weight 84.3 kg Intake: Oral 480 Other: Voiding Method Toilet Toilet # Voids 1 1 - Exam PHYSICAL EXAMINATION: HEENT: Head is atraumatic, normocephalic. Pupils equal, round. Neck is supple. There is no elevated jugular venous pressure. HEART EXAMINATION: Heart S1, S2 normal. No murmur or gallop heard. CHEST EXAMINATION: Lungs are clear to auscultation and precussion. No chest wall tenderness is noted on palpation or with deep breathing. ABDOMEN: Soft, nontender. Bowel sounds are heard. No organomegaly noted. Right groin soft, no evidence of any hematoma. EXTREMITIES: 2+ peripheral pulses with no evidence of peripheral edema and no calf tenderness noted. NEUROLOGIC patient is awake, alert and oriented -3. . - Labs CBC & Chem 7: 05/28/17 05:35 05/28/17 05:35 Labs: Abnormal Lab Results - Last 24 Hours (Table) 05/28/17 Range/Units 05:35 Chloride 108 H (98-107) mmol/L Assessment and Plan (1) ST elevation myocardial infarction (STEMI) of inferior wall Status: Acute (2) Presence of stent in left circumflex coronary artery Status: Acute (3) Triple vessel coronary artery disease Status: Acute (4) Dyslipidemia (high LDL; low HDL) Status: Acute (5) Hypertension Status: Chronic (6) Hypothyroid Status: Chronic (7) Smoking Status: Chronic Plan: Echocardiogram with Doppler study was reviewed revealed an ejection fraction of 55%. In view of the fact the patient had further chest discomfort, Dr. Mcallister will review her films and decide on whether to perform FFR with possible angioplasty of RCA her LAD today. Further recommendations to follow. DNP note has been reviewed, I agree with a documented findings and plan of care. Patient was seen and examined.
[2017-05-28] MEDS ORDERED: ASPIRIN 325 MG TAB PO STA (10:38)
[2017-05-28] MEDS ORDERED: ALPRAZolam 0.5 MG TAB PO PRN (10:38)
[2017-05-28] MEDS ORDERED: SODIUM CHLORIDE 0.9% 1,000 ML in EMPTY BAG 1 BAG IV ONE (10:38)
[2017-05-28] MEDS ORDERED: ALPRAZolam 0.25 MG TAB PO PRN (10:38)
[2017-05-28] MEDS ORDERED: ATORVASTATIN 80 MG TAB PO STA (10:38)
[2017-05-28] MEDS ORDERED: NITROGLYCERIN SL TABS 0.4 MG TAB SUBLINGUAL PRN ×2 (10:38→11:53)
[2017-05-28] MEDS ORDERED: HEPARIN SODIUM,PORCINE 30 ML 30 ML ONE (11:07)
[2017-05-28] MEDS ORDERED: LIDOCAINE 2% INJ 20 MG/ML (20 ML MDV) ONE (11:07)
[2017-05-28] MEDS ORDERED: MIDAZOLAM 2 MG/2 ML VIAL ONE (11:08)
[2017-05-28] MEDS ORDERED: VERAPAMIL 2.5 MG/ML 2 ML AMP ONE (11:08)
[2017-05-28] MEDS ORDERED: SODIUM CHLORIDE 0.9% 1,000 ML IV ONE (11:24)
[2017-05-28] MEDS ORDERED: MIDAZOLAM 2 MG/2 ML VIAL IVP ONE (11:24)
[2017-05-28] MEDS ORDERED: LIDOCAINE 2% INJ 20 MG/ML SQ ONE (11:25)
[2017-05-28] MEDS: VERAPAMIL SYRINGE (5 MG/10 ML) INTRAARTER ONE ×2 (11:26→11:45)
[2017-05-28] MEDS ORDERED: BIVALIRUDIN BOLUS 250 MG/50 ML IV ONE (11:26)
[2017-05-28] MEDS ORDERED: BIVALIRUDIN 250 MG in SODIUM CHLORIDE 0.9% 50 ML IV ONE (11:26)
[2017-05-28] MEDS ORDERED: NITROGLYCERIN 1000MCG/10ML SYRINGE INTRACORON ONE (11:41)
[2017-05-28] MEDS ORDERED: CLOPIDOGREL 75 MG TAB ONE (11:43)
[2017-05-28] MEDS ORDERED: IOHEXOL 350 MG/ML 100 ML BOTTLE INJ ONE (11:46)
[2017-05-28] MEDS ORDERED: CLOPIDOGREL 75 MG TAB PO ONE (11:46)
[2017-05-28] MEDS ORDERED: RX INFO: IV CONTRAST WAS GIVEN 1 EACH MISC MISCELLANE PRN (11:53)
[2017-05-28] MEDS ORDERED: MAG HYDROX/AL HYDROX/SIMETH 30 ML CUP PO PRN (11:53)
[2017-05-28] MEDS ORDERED: ZOLPIDEM 5 MG TAB PO PRN (11:53)
[2017-05-28] MEDS ORDERED: ATROPINE SULFATE 0.1 MG/ML 10ML SYRINGE IV PRN (11:53)
[2017-05-28] MEDS ORDERED: SODIUM CHLORIDE 0.9% 1,000 ML IV SCH (12:00)
[2017-05-28] MEDS: ONDANSETRON 4 MG/2 ML VIAL IVP PRN (12:15)
--- NOTE | 2017-05-28 12:21 | PTCA ---
PERCUTANEOUSTRANS CORORONARY ANGIOGRAPHY DATE OF SERVICE: 05/28/2017. PERFORMING PHYSICIAN: Henry Wei MD, Air Defense Control Officer. PROCEDURE PERFORMED: Successful stenting of the mid LAD using 2.5 x 15 mm Xience JOSE with good angiographic results. INDICATION: This is a pleasant 46-year-old, female patient who presented to the hospital a few days ago with chest discomfort and was diagnosed with acute inferior ST-elevation myocardial infarction where she underwent a heart catheterization and was found to have an acute total occlusion of the mid-left circumflex which was opened and stented with good angiographic results. She was found to beside that to have severe disease involving the mid-LAD and intermediate disease involving the mid RCA. She continues to have chest discomfort and she was brought today to undergo an intervention on the LAD. APPROACH: Right radial artery. COMPLICATION: None. LEVEL OF SEDATION: Moderate with a sedation length of 20 minutes. PROCEDURE DESCRIPTION: After obtaining an informed consent, the patient was brought to the Cardiac Transportation Clerk. The right radial artery was cannulated using micropuncture technique, the micropuncture wire passed easily. Then I placed a 6-Mongolian sheath in the right radial artery. At that point, anticoagulation was initiated using Angiomax. Then I gave the patient 2 mg of verapamil IA. Subsequently, I did engage the left main using JL 3.5 guiding catheter. Then I did wire the LAD using a whisper wire. I did balloon angioplasty using 2 0 x 12 mm balloon. Then I deployed a 2 5 x 15 mm Xience JOSE where the stent was positioned under fluoroscopy guidance and deployed under 14 atmospheres for 20 seconds. The following angiogram showed good angiographic results without perforation and without dissection. The procedure was completed without any complication. POSTPROCEDURE MANAGEMENT: 1. Dual anti-platelet therapy. 2. Risk factors modifications. 3. Follow up with the patient. MMODL / IJN: [id number] /
[2017-05-28] MEDS: ACETAMINOPHEN TAB 325 MG TAB PO PRN (15:21)
[2017-05-28] MEDS: ZOLPIDEM 5 MG TAB PO PRN (23:26)
[2017-05-29 06:26] LABS: Non-African American GFR(MDRD) >60 (>60 ml/min/1.73 sqM)
[2017-05-29] MEDS: LEVOTHYROXINE 137 MCG TAB PO SCH (06:48)
[2017-05-29] MEDS: HEPARIN SODIUM,PORCINE 5,000 UNIT/ML 1 ML VIAL SQ SCH (09:49)
[2017-05-29] MEDS: ATORVASTATIN 80 MG TAB PO SCH (09:49)
[2017-05-29] MEDS: ASPIRIN 325 MG TAB PO SCH (09:49)
[2017-05-29] MEDS: CLOPIDOGREL 75 MG TAB PO SCH (09:50)
[2017-05-29] MEDS: METOPROLOL TARTRATE 25 MG TAB PO SCH (09:50)
[2017-05-29] MEDS: LISINOPRIL 20 MG TAB PO SCH (09:50)
--- NOTE | 2017-05-29 11:05 | P.PN ---
Subjective Principal diagnosis: Inferior STEMI This is a 46-year-old female with past medical history significant for hypertension, hyperlipidemia, nicotine dependence, she presented to the hospital with an inferior ST elevation myocardial infarction. In view of that patient was taken to the cardiac catheterization lab by Dr. Mcallister where she was found to have an acute total occlusion of the left circumflex which was stented and had good angiographic results. Patient was also found to have intermediate to severe disease involving the RCA and the LAD. Patient was seen and examined this morning, pain-free at present, she did state that she had an episode of discomfort between her scapula while ambulating. EKG shows normal sinus rhythm with no changes from post-PCI. CBC normal. Potassium 4.1, BUN 7, creatinine 0.8. Troponins 0.04, 16.4, 17.4. Echo remains pending. Cholesterol 253, LDL 189, HDL 42, triglycerides 109. TSH 58.5 with a free T4 of 0.4. Blood pressure 125/80 with heart rate in the 80s this morning. 05/28/2017 Patient seen and examined this morning, she states that she had 1 episode of chest discomfort after ambulating in the hallway last evening. She also complained of some discomfort while sitting in bed this morning. EKG was performed which showed a normal sinus rhythm with evolutionary inferior ST-T wave changes, post inferior wall [place] . Patient does have disease in her right coronary artery as well as LAD. Dr. Mcallister will review her films and decide on whether to perform FFR with possible stenting of those vessels today. Blood pressure 120/70 this morning, heart rate in the 50s. CBC normal, potassium 3.8 , BUN 8, creatinine 0.9. 05/29/2017 Patient underwent angioplasty with stenting of the LAD yesterday. She was seen and examined this morning, denies any further chest discomfort. Blood pressure 110/70 with a heart rate in the 60s. She may be able to be discharged home today from cardiology's perspective, we'll make her a follow-up appointment in the office with Dr. Mcallister in one week. Objective - Vital Signs Vital signs: Vital Signs Temp 97.3 F L 05/29/17 04:00 Pulse 62 05/29/17 04:00 Resp 16 05/29/17 04:00 BP 109/70 05/29/17 04:00 Pulse Ox 94 L 05/29/17 04:00 Intake & Output 05/28/17 05/29/17 05/29/17 18:59 06:59 18:59 Intake Total 582 1240 240 Balance 582 1240 240 Weight 85.3 kg Intake: IV 122 1000 Sodium Chloride 0.9% 1, 1000 000 ml @ 100 mls/hr IV . Q10H MARTINEZ Rx#:[id number] Intake, IV Titration 100 Amount Sodium Chloride 0.9% 1, 100 000 ml @ 100 mls/hr IV . Q10H MARTINEZ Rx#:[id number] Oral 360 240 240 Other: Voiding Method Toilet Toilet # Voids 1 1 - Exam PHYSICAL EXAMINATION: HEENT: Head is atraumatic, normocephalic. Pupils equal, round. Neck is supple. There is no elevated jugular venous pressure. HEART EXAMINATION: Heart S1, S2 normal. No murmur or gallop heard. CHEST EXAMINATION: Lungs are clear to auscultation and precussion. No chest wall tenderness is noted on palpation or with deep breathing. ABDOMEN: Soft, nontender. Bowel sounds are heard. No organomegaly noted. Right groin soft, no evidence of any hematoma. Right radial site clean and dry , good distal pulse. EXTREMITIES: 2+ peripheral pulses with no evidence of peripheral edema and no calf tenderness noted. NEUROLOGIC patient is awake, alert and oriented -3. . - Labs CBC & Chem 7: 05/28/17 05:35 05/29/17 05:37 Assessment and Plan (1) ST elevation myocardial infarction (STEMI) of inferior wall Status: Acute (2) Presence of stent in left circumflex coronary artery Status: Acute (3) Triple vessel coronary artery disease Status: Acute (4) Dyslipidemia (high LDL; low HDL) Status: Acute (5) Hypertension Status: Chronic (6) Hypothyroid Status: Chronic (7) Smoking Status: Chronic Plan: Patient may be discharged home today. We'll make a follow-up appointment for her to see Dr. Mcallister in the office in one week. She will be discharged home on aspirin 325 mg daily, Lipitor 80 mg daily, Plavix 75 mg daily, Synthroid, lisinopril 20 mg daily, metoprolol tartrate 25 mg one tablet by mouth twice a day, and sublingual nitroglycerin as needed for chest pain. Patient has been educated regarding the importance of nicotine cessation, she's been given prescriptions for all the above medications. DNP note has been reviewed, I agree with a documented findings and plan of care. Patient was seen and examined.
[2017-05-29 11:53] VITALS: BP 120/76; PULSE 53; RESP 18; TEMP 97.2
--- NOTE | 2017-05-29 12:48 | P.DS ---
Providers Date of admission: 05/25/17 17:10 Expected date of discharge: 05/29/17 Attending physician: Juanjo Magana MD Consults: 05/25/17 17:08 Consult Physician Routine Consulting Provider: Cardiology Chaim Consult Reason/Comments: Post Interventional patient Do you want consulting provider notified?: Already Contacted 05/28/17 11:53 Consult Physician Routine Consulting Provider: Cardiology Chaim Consult Reason/Comments: Post Interventional patient Do you want consulting provider notified?: Already Contacted Primary care physician: Stated None - Discharge Diagnosis(es) (1) ST elevation myocardial infarction (STEMI) Current Visit: Yes Status: Acute (2) Hypertension Current Visit: Yes Status: Chronic (3) Dyslipidemia (high LDL; low HDL) Current Visit: Yes Status: Acute (4) Hypothyroid Current Visit: Yes Status: Chronic (5) Smoking Current Visit: Yes Status: Chronic Hospital Course: This is a 46-year-old female was admitted with symptoms of chest pain from time ST elevation [place]. Cardiology was consulted patient was taken for cardiac catheterization by Dr. Wei on 05/25/2017. At that time patient was stented in the left circumflex. Patient continued to complain of infrascapular pain with exertion on May 28 patient also started complaining of chest pain. Patient was taken by Dr. Wei for cardiac catheterization and stent was placed to the LAD. Currently patient is chest pain-free. Patient discharged home on aspirin Plavix Lipitor metoprolol. Regarding her headaches patient seems to have chronic headache. Workup here was negative condition at discharge stable. We did discuss tobacco cessation with the patient was counseled. We also offered helping patient. Disposition home Procedures: Cardiac catheterization performed by Dr. Mcallister on 05/25/2017 with stroke ulysses stent to left circumflex. Cardiac catheterization performed by Dr. Mcallister on May 28 with ulysses stent to LAD Patient Condition at Discharge: Good Plan - Discharge Summary New Discharge Prescriptions: New Aspirin 325 mg PO DAILY #30 tab Atorvastatin [Lipitor] 80 mg PO DAILY #30 tab Clopidogrel [Plavix] 75 mg PO DAILY #30 tab Metoprolol Tartrate [Lopressor] 25 mg PO BID #60 tab Nitroglycerin Sl Tabs [Nitrostat] 0.4 mg SUBLINGUAL Q5M PRN #25 tab PRN Reason: Chest Pain Continue Lisinopril [Zestril] 20 mg PO DAILY Levothyroxine Sodium [Synthroid] 112 mcg PO DAILY Discontinued diphenhydrAMINE HCL [Benadryl] 25 mg PO HS PRN PRN Reason: Allergy Symptoms Discharge Medication List Levothyroxine Sodium [Synthroid] 112 mcg PO DAILY 04/16/16 [History] Lisinopril [Zestril] 20 mg PO DAILY 04/16/16 [History] Aspirin 325 mg PO DAILY #30 tab 05/29/17 [Rx] Atorvastatin [Lipitor] 80 mg PO DAILY #30 tab 05/29/17 [Rx] Clopidogrel [Plavix] 75 mg PO DAILY #30 tab 05/29/17 [Rx] Metoprolol Tartrate [Lopressor] 25 mg PO BID #60 tab 05/29/17 [Rx] Nitroglycerin Sl Tabs [Nitrostat] 0.4 mg SUBLINGUAL Q5M PRN #25 tab 05/29/17 [Rx ] Follow up Appointment(s)/Referral(s): Henry Wei MD [STAFF PHYSICIAN] - 06/07/17 4:45 pm Nonstaff,Physician [REFERRING] - 1-2 days (Please make appointment with preffered primary care provider.) Patient Instructions/Handouts: *Surgery [facility] - After Heart Catheterization - Post Form Remover Instructions, Heart Healthy Diet (DC), Coronary Intravascular Stent Placement (DC) Discharge Disposition: HOME SELF-CARE
--- NOTE | 2017-05-29 12:49 | P.PN ---
Progress Note - Text Times spent was to discharge is 36 minutes
== END 2017-05-29 15:25 | disposition home or self-care (01) | DRG 247 ==
LOC: EC 15:19 → 6ICU 17:10 → 6SEL 05-26 11:34
PROVIDERS: ADMIT Family Medicine; ATTEND Family Medicine
PROC: B2111ZZ Fluoroscopy of Multiple Coronary Arteries using Low Osmolar Contrast (ICD-10-PCS; 2017-05-25)
PROC: B2151ZZ Fluoroscopy of Left Heart using Low Osmolar Contrast (ICD-10-PCS; 2017-05-25)
PROC: 027034Z Dilation of Coronary Artery, One Artery with Drug-eluting Intraluminal Device, Percutaneous Approach (ICD-10-PCS; principal; 2017-05-25 15:53)
PROC: 4A023N7 Measurement of Cardiac Sampling and Pressure, Left Heart, Percutaneous Approach (ICD-10-PCS; 2017-05-25 15:53)
DX: I21.19 ST elevation (STEMI) myocardial infarction involving other coronary artery of inferior wall (principal); I10 Essential (primary) hypertension; E78.5 Hyperlipidemia, unspecified; E03.9 Hypothyroidism, unspecified; F17.210 Nicotine dependence, cigarettes, uncomplicated; F41.9 Anxiety disorder, unspecified; F32.9 Major depressive disorder, single episode, unspecified; G43.909 Migraine, unspecified, not intractable, without status migrainosus; I25.10 Atherosclerotic heart disease of native coronary artery without angina pectoris; Z82.49 Family history of ischemic heart disease and other diseases of the circulatory system; Z79.899 Other long term (current) drug therapy
CPT/HCPCS: 36415; 70551; 71010; 80048; 80053; 80061; 82550; 82553; 82565; 83735; 84439; 84443; 84484; 85025; 85610; 85730; 93005; 93306; 96365; 96375; 99291

== ENCOUNTER 2017-06-05 00:20 | Inpatient (IN) | payer OTHER ==
--- NOTE | 2017-06-05 01:31 | ED ---
General Adult HPI - General Chief complaint: Syncope Stated complaint: Chest Pain Time Seen by Provider: 06/05/17 00:25 Source: patient, family, EMS, RN notes reviewed Mode of arrival: EMS Limitations: no limitations - History of Present Illness Initial comments: This is a 46-year-old female presents emergency room complaining of chest pain. Patient states just a week ago she had 2 stents placed because she had a STEMI. Patient states tonight the pain is in the left side when up the back of her neck. Patient states she took nitroglycerin and then she passed out according to the daughter which lasted about 30 seconds. Patient states nitroglycerin took her pain away completely. She almost had another syncopal episode but did not completely pass out. Patient denied any difficulty breathing or shortness of breath. Patient denied any diaphoresis. Patient denies nausea vomiting. Patient denied any trauma when she passed out she was out by the daughter. Patient states she does have a headache at this time. Patient denies any abdominal pain. Patient denies any numbness or weakness. - Related Data Home Medications Medication Instructions Recorded Confirmed Levothyroxine Sodium [Synthroid] 112 mcg PO DAILY 04/16/16 05/25/17 Lisinopril [Zestril] 20 mg PO DAILY 04/16/16 05/25/17 Previous Rx's Medication Instructions Recorded Aspirin 325 mg PO DAILY #30 tab 05/29/17 Atorvastatin [Lipitor] 80 mg PO DAILY #30 tab 05/29/17 Clopidogrel [Plavix] 75 mg PO DAILY #30 tab 05/29/17 Levothyroxine Sodium 112 mcg PO DAILY #30 tablet 05/29/17 Metoprolol Tartrate [Lopressor] 25 mg PO BID #60 tab 05/29/17 Nicotine 21Mg/24Hr Patch [Habitrol] 1 each TRANSDERM DAILY #30 patch 05/29/17 Nitroglycerin Sl Tabs [Nitrostat] 0.4 mg SUBLINGUAL Q5M PRN #25 tab 05/29/17 Allergies Allergy/AdvReac Type Severity Reaction Status Date / Time No Known Allergies Allergy Verified 06/05/17 00:28 Review of Systems ROS Statement: Those systems with pertinent positive or pertinent negative responses have been documented in the HPI. ROS Other: All systems not noted in ROS Statement are negative. Past Medical History Past Medical History: Coronary Artery Disease (CAD), Chest Pain / Angina, Hypertension, Thyroid Disorder History of Any Multi-Drug Resistant Organisms: None Reported Past Surgical History: Orthopedic Surgery Additional Past Surgical History / Comment(s): thyroidectomy Past Anesthesia/Blood Transfusion Reactions: No Reported Reaction Past Psychological History: Anxiety Smoking Status: Current every day smoker Past Alcohol Use History: Rare Past Drug Use History: None Reported General Exam - General Exam Comments Initial Comments: GENERAL: Patient is well-developed and well-nourished. Patient is nontoxic and well- hydrated and is in mild distress. ENT: Neck is soft and supple. No significant lymphadenopathy is noted. Oropharynx is clear. Moist mucous membranes. Neck has full range of motion without eliciting any pain. EYES: The sclera were anicteric and conjunctiva were pink and moist. Extraocular movements were intact and pupils were equal round and reactive to light. Eyelids were unremarkable. PULMONARY: Unlabored respirations. Good breath sounds bilaterally. No audible rales rhonchi or wheezing was noted. CARDIOVASCULAR: There is a regular rate and rhythm without any murmurs gallops or rubs. ABDOMEN: Soft and nontender with normal bowel sounds. No palpable organomegaly was noted. There is no palpable pulsatile mass. SKIN: Skin is clear with no lesions or rashes and otherwise unremarkable. NEUROLOGIC: Patient is alert and oriented x3. Cranial nerves II through XII are grossly intact. Motor and sensory are also intact. Normal speech, volume and content. Symmetrical smile. MUSCULOSKELETAL: Normal extremities with adequate strength and full range of motion. LYMPHATICS: No significant lymphadenopathy is noted PSYCHIATRIC: Normal psychiatric evaluation. Limitations: no limitations Course Vital Signs 06/05/17 06/05/17 06/05/17 00:21 01:10 01:49 Temperature 97.9 F 97.3 F L Pulse Rate 67 66 68 Respiratory 18 18 16 Rate Blood Pressure 101/73 104/71 119/85 O2 Sat by Pulse 97 96 100 Oximetry 06/05/17 03:24 Temperature 97.4 F L Pulse Rate 66 Respiratory 16 Rate Blood Pressure 118/56 O2 Sat by Pulse 100 Oximetry Medical Decision Making - Medical Decision Making EKG shows normal sinus rhythm at 66 bpm MA interval 238 QRSs 84 Q-T intervals 436 QTC is 457. Patient's EKG shows some inverted T waves in 3 and aVF which were seen on old EKG. CT of the brain shows no acute abnormality. Chest x-ray shows no acute abnormality. I spoke with Dr. Ruiz and admitted the patient and wrote admitting orders and consult cardiology I started the patient on heparin - Lab Data Result diagrams: 06/05/17 00:30 06/05/17 00:30 Lab Results 06/05/17 06/05/17 06/05/17 Range/Units 00:30 00:30 00:30 WBC 10.8 H (3.8-10.6) k/uL RBC 4.14 (3.80-5.40) m/uL Hgb 13.6 (11.4-16.0) gm/dL Hct 41.0 (34.0-46.0) % MCV 98.9 (80.0-100.0) fL MCH 32.9 (25.0-35.0) pg MCHC 33.2 (31.0-37.0) g/dL RDW 14.2 (11.5-15.5) % Plt Count 289 (150-450) k/uL Neutrophils % 55 % Lymphocytes % 35 % Monocytes % 7 % Eosinophils % 2 % Basophils % 1 % Neutrophils # 5.9 (1.3-7.7) k/uL Lymphocytes # 3.8 (1.0-4.8) k/uL Monocytes # 0.7 (0-1.0) k/uL Eosinophils # 0.2 (0-0.7) k/uL Basophils # 0.1 (0-0.2) k/uL PT (9.0-12.0) sec INR (<1.2) APTT (22.0-30.0) sec Sodium 141 (137-145) mmol/L Potassium 4.3 (3.5-5.1) mmol/L Chloride 106 (98-107) mmol/L Carbon Dioxide 24 (22-30) mmol/L Anion Gap 11 mmol/L BUN 9 (7-17) mg/dL Creatinine 0.90 (0.52-1.04) mg/dL Est GFR (MDRD) Af Amer >60 (>60 ml/min/1.73 sqM) Est GFR (MDRD) Non-Af >60 (>60 ml/min/1.73 sqM) Glucose 118 H (74-99) mg/dL Calcium 8.9 (8.4-10.2) mg/dL Magnesium 1.9 (1.6-2.3) mg/dL Total Bilirubin 0.3 (0.2-1.3) mg/dL AST 21 (14-36) U/L ALT 34 (9-52) U/L Alkaline Phosphatase 100 (38-126) U/L Total Creatine Kinase 110 (30-135) U/L CK-MB (CK-2) 0.3 (0.0-2.4) ng/mL CK-MB (CK-2) Rel Index 0.3 Troponin I 0.017 (0.000-0.034) ng/mL Total Protein 6.8 (6.3-8.2) g/dL Albumin 3.7 (3.5-5.0) g/dL 06/05/17 Range/Units 00:30 WBC (3.8-10.6) k/uL RBC (3.80-5.40) m/uL Hgb (11.4-16.0) gm/dL Hct (34.0-46.0) % MCV (80.0-100.0) fL MCH (25.0-35.0) pg MCHC (31.0-37.0) g/dL RDW (11.5-15.5) % Plt Count (150-450) k/uL Neutrophils % % Lymphocytes % % Monocytes % % Eosinophils % % Basophils % % Neutrophils # (1.3-7.7) k/uL Lymphocytes # (1.0-4.8) k/uL Monocytes # (0-1.0) k/uL Eosinophils # (0-0.7) k/uL Basophils # (0-0.2) k/uL PT 10.3 (9.0-12.0) sec INR 1.0 (<1.2) APTT 25.2 (22.0-30.0) sec Sodium (137-145) mmol/L Potassium (3.5-5.1) mmol/L Chloride (98-107) mmol/L Carbon Dioxide (22-30) mmol/L Anion Gap mmol/L BUN (7-17) mg/dL Creatinine (0.52-1.04) mg/dL Est GFR (MDRD) Af Amer (>60 ml/min/1.73 sqM) Est GFR (MDRD) Non-Af (>60 ml/min/1.73 sqM) Glucose (74-99) mg/dL Calcium (8.4-10.2) mg/dL Magnesium (1.6-2.3) mg/dL Total Bilirubin (0.2-1.3) mg/dL AST (14-36) U/L ALT (9-52) U/L Alkaline Phosphatase (38-126) U/L Total Creatine Kinase (30-135) U/L CK-MB (CK-2) (0.0-2.4) ng/mL CK-MB (CK-2) Rel Index Troponin I (0.000-0.034) ng/mL Total Protein (6.3-8.2) g/dL Albumin (3.5-5.0) g/dL Critical Care Time Critical Care Time: Yes Total Critical Care Time: 35 Disposition Clinical Impression: Unstable angina, Syncope and collapse Disposition: ADMITTED IP TO THIS [facility] Time of Disposition: 02:49
[2017-06-05] MEDS ORDERED: SODIUM CHLORIDE 0.9% 500 ML IV ONE (01:35)
[2017-06-05 01:38] LABS: Basophils # (A) 0.1 k/uL (0-0.2); Basophils % (A) 1 %; CH 32.9; CHCM 33.5; Eosinophils # (A) 0.2 k/uL (0-0.7); Eosinophils % (A) 2 %; HGB 13.6 gm/dL (11.4-16.0); Luc # (Auto) 0.18; Luc % (Auto) 2; Lymphocytes # (A) 3.8 k/uL (1.0-4.8); Lymphocytes % (A) 35 %; MCH 32.9 pg (25.0-35.0); MCHC 33.2 g/dL (31.0-37.0); MCV 98.9 fL (80.0-100.0); Mean Platelet Volume 9.2; Monocytes # (A) 0.7 k/uL (0-1.0); Monocytes % (A) 7 %; Neutrophils # (A) 5.9 k/uL (1.3-7.7); Neutrophils % (A) 55 %; RBC 4.14 m/uL (3.80-5.40); RDW 14.2 % (11.5-15.5); WBC 10.8 k/uL (3.8-10.6); WBC (Perox) 10.96
[2017-06-05 01:50] LABS: ALT 34 U/L (9-52); AST 21 U/L (14-36); Alkaline Phosphatase 100 U/L (38-126); Anion Gap 11 mmol/L; Blood Urea Nitrogen 9 mg/dL (7-17); Calcium 8.9 mg/dL (8.4-10.2); Carbon Dioxide 24 mmol/L (22-30); Chloride 106 mmol/L (98-107); Glucose 118 mg/dL (74-99); Magnesium 1.9 mg/dL (1.6-2.3); Non-African American GFR(MDRD) >60 (>60 ml/min/1.73 sqM); Potassium 4.3 mmol/L (3.5-5.1); Sodium 141 mmol/L (137-145); Total Bilirubin 0.3 mg/dL (0.2-1.3); Total Protein 6.8 g/dL (6.3-8.2)
[2017-06-05 01:53] LABS: Partial Thromboplastin Time 25.2 sec (22.0-30.0); Prothrombin Time 10.3 sec (9.0-12.0)
[2017-06-05 02:15] LABS: Creatine Kinase MB 0.3 ng/mL (0.0-2.4); Troponin I 0.017 ng/mL (0.000-0.034)
[2017-06-05] MEDS ORDERED: NITROGLYCERIN SL TABS 0.4 MG TAB SUBLINGUAL PRN ×2 (02:51→14:30)
[2017-06-05] MEDS ORDERED: HEPARIN SODIUM,PORCINE 5,000 UNIT/ML 1 ML VIAL IV ONE (02:51)
--- NOTE | 2017-06-05 02:55 | CT ---
EXAM: CT Head Without Intravenous Contrast CLINICAL HISTORY: Pain. Seizure tonight. History of seizures. TECHNIQUE: Axial computed tomography images of the head/brain without intravenous contrast. Coronal and sagittal reformations provided. CTDI is 60.30 mGy and DLP is 1054.20 mGy-cm. This CT exam was performed using one or more of the following dose reduction techniques: automated exposure control, adjustment of the mA and/or kV according to patient size, and/or use of iterative reconstruction technique. COMPARISON: MRI dated 05/27/[address] dated 04/16/2016. FINDINGS: Brain: No acute intracranial hemorrhage. No evidence of acute infarct. No evidence of significant white matter disease or edema. No mass effect or midline shift. Ventricles: Unremarkable. No ventriculomegaly. Bones/joints: Unremarkable. No acute fracture. Soft tissues: Unremarkable. Sinuses: Unremarkable as visualized. No acute sinusitis. Mastoid air cells: Unremarkable as visualized. No mastoid effusion. IMPRESSION: No evidence of acute intracranial abnormality.
--- NOTE | 2017-06-05 02:56 | XR ---
EXAM: XR Chest, 2 Views CLINICAL HISTORY: Chest pain. TECHNIQUE: Frontal and lateral views of the chest. COMPARISON: CXR dated 05/25/2017. FINDINGS: Lungs: No evidence of focal consolidation. No pulmonary edema. Pleural space: No evidence of pleural effusion or pneumothorax. Heart: Unremarkable. No cardiomegaly. Mediastinum: Unremarkable. Bones/joints: Unremarkable. IMPRESSION: No radiographic evidence of acute cardiopulmonary process.
[2017-06-05] MEDS: HEPARIN SODIUM,PORCINE/D5W PMX 25,000 UNIT in DEXTROSE/WATER 1 500ML.BAG IV SCH (03:21)
[2017-06-05 04:20] VITALS: BMI 29.8
[2017-06-05] MEDS: NITROGLYCERIN OINT 1 INCH/GM PACKET TOPICAL SCH ×3 (06:26→18:24)
[2017-06-05 07:56] LABS: Creatine Kinase MB 0.4 ng/mL (0.0-2.4); Troponin I 0.019 ng/mL (0.000-0.034)
--- NOTE | 2017-06-05 08:29 | P.CRDCN ---
History of Present Illness History of present illness: Patient interviewed and examined. Please see full dictation with this practitioner. Patient experienced upper midsternal chest discomfort that radiated to the neck. She took a nitroglycerin and got up to go to the bathroom and collapsed. The episode was fairly similar to her initial presentation earlier this month when she came in with an acute myocardial infarction. The twelve-lead ECG shows sinus rhythm with T-wave inversions in the inferior leads. Review of her ECGs from her last admission show ST elevation in the inferior leads with a [address] depression in lead V1 and V2 She has a known significant occlusion in the RCA Heart sounds are normal no murmurs blood pressures in normal range heart rate is in normal range So far cardiac enzymes are normal Impression Chest pain consistent with angina with no evidence for myocardial injury at this time Known coronary artery disease and recent ST elevation [place] Plan This patient should be transferred as an inpatient to sixth floor, was picked Dr. Wei regarding repeat coronary angiography, continue aspirin and Plavix atorvastatin and metoprolol but hold Zestril for now Continue IV heparin Past Medical History Past Medical History: Coronary Artery Disease (CAD), Chest Pain / Angina, Hypertension, Thyroid Disorder Last Myocardial Infarction Date:: 05/25/2017 History of Any Multi-Drug Resistant Organisms: None Reported Past Surgical History: Orthopedic Surgery Additional Past Surgical History / Comment(s): thyroidectomy Past Anesthesia/Blood Transfusion Reactions: No Reported Reaction Past Psychological History: Anxiety Smoking Status: Current every day smoker Past Alcohol Use History: Rare Past Drug Use History: None Reported Medications and Allergies Home Medications Medication Instructions Recorded Confirmed Type Levothyroxine Sodium [Synthroid] 112 mcg PO DAILY 04/16/16 06/05/17 History Lisinopril [Zestril] 20 mg PO DAILY 04/16/16 06/05/17 History Aspirin 325 mg PO DAILY #30 tab 05/29/17 06/05/17 Rx Atorvastatin [Lipitor] 80 mg PO DAILY #30 tab 05/29/17 06/05/17 Rx Clopidogrel [Plavix] 75 mg PO DAILY #30 tab 05/29/17 06/05/17 Rx Metoprolol Tartrate [Lopressor] 25 mg PO BID #60 tab 05/29/17 06/05/17 Rx Nitroglycerin Sl Tabs [Nitrostat] 0.4 mg SUBLINGUAL Q5M PRN #25 tab 05/29/17 Rx Nicotine 21Mg/24Hr Patch [Habitrol] 1 patch TRANSDERM DAILY 06/05/17 06/05/17 History Allergies Allergy/AdvReac Type Severity Reaction Status Date / Time No Known Allergies Allergy Verified 06/05/17 00:28 Physical Exam Vitals: Vital Signs Temp Pulse Pulse Resp BP BP Pulse Ox 06/05/17 08:00 98.7 F 64 16 115/79 97 06/05/17 05:12 16 06/05/17 04:09 98.0 F 58 L 16 117/84 98 06/05/17 03:24 97.4 F L 66 16 118/56 100 06/05/17 01:49 68 16 119/85 100 06/05/17 01:10 97.3 F L 66 18 104/71 96 06/05/17 00:21 97.9 F 67 18 101/73 97 Intake and Output 06/04/17 06/05/17 06/05/17 22:59 06:59 14:59 Other: # Voids 1 Weight 83.915 kg Results 06/05/17 00:30 06/05/17 00:30 Cardiac Enzymes 06/05/17 06/05/17 06/05/17 Range/Units 00:30 00:30 06:28 AST 21 (14-36) U/L CK-MB (CK-2) 0.3 0.4 (0.0-2.4) ng/mL Troponin I 0.017 0.019 (0.000-0.034) ng/mL Coagulation 06/05/17 Range/Units 00:30 PT 10.3 (9.0-12.0) sec APTT 25.2 (22.0-30.0) sec CBC 06/05/17 Range/Units 00:30 WBC 10.8 H (3.8-10.6) k/uL RBC 4.14 (3.80-5.40) m/uL Hgb 13.6 (11.4-16.0) gm/dL Hct 41.0 (34.0-46.0) % Plt Count 289 (150-450) k/uL Comprehensive Metabolic Panel 06/05/17 Range/Units 00:30 Sodium 141 (137-145) mmol/L Potassium 4.3 (3.5-5.1) mmol/L Chloride 106 (98-107) mmol/L Carbon Dioxide 24 (22-30) mmol/L BUN 9 (7-17) mg/dL Creatinine 0.90 (0.52-1.04) mg/dL Glucose 118 H (74-99) mg/dL Calcium 8.9 (8.4-10.2) mg/dL AST 21 (14-36) U/L ALT 34 (9-52) U/L Alkaline Phosphatase 100 (38-126) U/L Total Protein 6.8 (6.3-8.2) g/dL Albumin 3.7 (3.5-5.0) g/dL Current Medications Generic Name Dose Route Start Last Admin Trade Name Freq PRN Reason Stop Dose Admin Aspirin 325 mg 06/06/17 09:00 Aspirin PO DAILY [facility] Heparin Sodium/Dextrose 25,000 500 mls @ 20.03 mls/hr 06/05/17 03:00 03:21 unit/ IV Solution IV 11.91 units/kg/hr .Q24H MARTINEZ 20 mls/hr Protocol Administration 11.94 UNITS/KG/HR Nitroglycerin 1 inch 06/05/17 06:00 06/05/17 06:26 Nitro-Bid Oint TOPICAL Not Given Q6HR [facility] Nitroglycerin 0.4 mg 06/05/17 02:51 Nitrostat SUBLINGUAL Q5M PRN Chest Pain Intake and Output 06/04/17 06/05/17 06/05/17 22:59 06:59 14:59 Other: # Voids 1 Weight 83.915 kg 06/05/17 00:30 06/05/17 00:30
[2017-06-05] MEDS: METOPROLOL TARTRATE 25 MG TAB PO SCH ×2 (09:40→20:03)
[2017-06-05] MEDS: CLOPIDOGREL 75 MG TAB PO SCH (09:40)
[2017-06-05] MEDS: ATORVASTATIN 80 MG TAB PO SCH (09:40)
[2017-06-05] MEDS: ASPIRIN 325 MG TAB PO SCH (09:41)
[2017-06-05] MEDS ORDERED: ACETAMINOPHEN TAB 325 MG TAB PO PRN (11:08)
--- NOTE | 2017-06-05 13:15 | P.CRDCN ---
History of Present Illness Consult date: 06/05/17 History of present illness: This is a 46-year-old female. She presented to the ED with complaints of chest pain, syncope and headache. She states she was sitting down watching TV when she began to feel some chest burning in the midsternal region. The pain was also in the base of her neck. She got up to get her nitroglycerin tabs and she became acutely dizzy and diaphoretic. She ultimately passed out and was caught by her son. She states the burning in her chest persisted for approximately 10 minutes. She recently underwent cardiac catheterization with Dr. Wei 05/29 s/p STEMI 05/25. She had stents placed on both occasions - mid- circumflex and mid LAD with 60% disease of RCA. She states she has been compliant with all medications since her procedure and was scheduled for follow up tomorrow. Troponin negative 2 third due at 12:30. BUN 9, creatinine 0.9. Blood pressure 115/79 with heart rate is 64. EKG reveals sinus rhythm with T-wave inversion of inferior leads. Recent echo reveals preserved LV function with EF 55%. Review of Systems Extensive review of systems performed, negative except mentioned in HPI. Past Medical History Past Medical History: Coronary Artery Disease (CAD), Chest Pain / Angina, Hypertension, Thyroid Disorder Last Myocardial Infarction Date:: 05/25/2017 History of Any Multi-Drug Resistant Organisms: None Reported Past Surgical History: Orthopedic Surgery Additional Past Surgical History / Comment(s): thyroidectomy Past Anesthesia/Blood Transfusion Reactions: No Reported Reaction Past Psychological History: Anxiety Smoking Status: Current every day smoker Past Alcohol Use History: Rare Past Drug Use History: None Reported Medications and Allergies Home Medications Medication Instructions Recorded Confirmed Type Levothyroxine Sodium [Synthroid] 112 mcg PO DAILY 04/16/16 06/05/17 History Lisinopril [Zestril] 20 mg PO DAILY 04/16/16 06/05/17 History Aspirin 325 mg PO DAILY #30 tab 05/29/17 06/05/17 Rx Atorvastatin [Lipitor] 80 mg PO DAILY #30 tab 05/29/17 06/05/17 Rx Clopidogrel [Plavix] 75 mg PO DAILY #30 tab 05/29/17 06/05/17 Rx Metoprolol Tartrate [Lopressor] 25 mg PO BID #60 tab 05/29/17 06/05/17 Rx Nitroglycerin Sl Tabs [Nitrostat] 0.4 mg SUBLINGUAL Q5M PRN #25 tab 05/29/17 Rx Nicotine 21Mg/24Hr Patch [Habitrol] 1 patch TRANSDERM DAILY 06/05/17 06/05/17 History Allergies Allergy/AdvReac Type Severity Reaction Status Date / Time No Known Allergies Allergy Verified 06/05/17 00:28 Physical Exam Vitals: Vital Signs Temp Pulse Pulse Resp BP BP Pulse Ox 06/05/17 12:00 98.1 F 57 L 16 99/69 97 06/05/17 08:00 98.7 F 64 16 115/79 97 06/05/17 05:12 16 06/05/17 04:09 98.0 F 58 L 16 117/84 98 06/05/17 03:24 97.4 F L 66 16 118/56 100 06/05/17 01:49 68 16 119/85 100 06/05/17 01:10 97.3 F L 66 18 104/71 96 06/05/17 00:21 97.9 F 67 18 101/73 97 Intake and Output 06/04/17 06/05/17 06/05/17 22:59 06:59 14:59 Intake Total 240 Balance 240 Intake: Oral 240 Other: Voiding Method Toilet # Voids 1 Weight 83.915 kg GENERAL: This is a 46-year-old female in no apparent distress at the time of my examination. HEENT: Head is atraumatic, normocephalic. Pupils are equal, round. Sclerae anicteric. Conjunctivae are clear. Mucous membranes of the mouth are moist. Neck is supple. There is no jugular venous distention. No carotid bruit is heard. LUNGS: Clear to auscultation no wheezes, rales or rhonchi. No chest wall tenderness is noted on palpation or with deep breathing. HEART: Regular rate and rhythm without murmurs, rubs or gallops. S1 and S2 heard. ABDOMEN: Soft, nontender. Bowel sounds are heard. No organomegaly noted. EXTREMITIES: 2+ peripheral pulses with no evidence of peripheral edema and no calf tenderness noted. NEUROLOGIC: Patient is awake, alert and oriented x3. Results 06/05/17 00:30 06/05/17 00:30 Cardiac Enzymes 06/05/17 06/05/17 06/05/17 Range/Units 00:30 00:30 06:28 AST 21 (14-36) U/L CK-MB (CK-2) 0.3 0.4 (0.0-2.4) ng/mL Troponin I 0.017 0.019 (0.000-0.034) ng/mL Coagulation 06/05/17 06/05/17 Range/Units 00:30 09:08 PT 10.3 (9.0-12.0) sec APTT 25.2 88.1 H (22.0-30.0) sec CBC 06/05/17 Range/Units 00:30 WBC 10.8 H (3.8-10.6) k/uL RBC 4.14 (3.80-5.40) m/uL Hgb 13.6 (11.4-16.0) gm/dL Hct 41.0 (34.0-46.0) % Plt Count 289 (150-450) k/uL Comprehensive Metabolic Panel 06/05/17 Range/Units 00:30 Sodium 141 (137-145) mmol/L Potassium 4.3 (3.5-5.1) mmol/L Chloride 106 (98-107) mmol/L Carbon Dioxide 24 (22-30) mmol/L BUN 9 (7-17) mg/dL Creatinine 0.90 (0.52-1.04) mg/dL Glucose 118 H (74-99) mg/dL Calcium 8.9 (8.4-10.2) mg/dL AST 21 (14-36) U/L ALT 34 (9-52) U/L Alkaline Phosphatase 100 (38-126) U/L Total Protein 6.8 (6.3-8.2) g/dL Albumin 3.7 (3.5-5.0) g/dL Current Medications Generic Name Dose Route Start Last Admin Trade Name Freq PRN Reason Stop Dose Admin Acetaminophen 650 mg 06/05/17 11:08 06/05/17 11:14 Tylenol Tab PO 650 mg Q6HR PRN Administration Fever and/ or Mild Pain Aspirin 325 mg 06/05/17 09:00 06/05/17 09:41 Aspirin PO 325 mg DAILY MARTINEZ Administration Atorvastatin Calcium 80 mg 06/05/17 09:00 06/05/17 09:40 Lipitor PO 80 mg DAILY MARTINEZ Administration Clopidogrel Bisulfate 75 mg 06/05/17 09:00 06/05/17 09:40 Plavix PO 75 mg DAILY MARTINEZ Administration Heparin Sodium/Dextrose 25,000 500 mls @ 20.03 mls/hr 06/05/17 03:00 03:21 unit/ IV Solution IV 11.91 units/kg/hr .Q24H MARTINEZ 20 mls/hr Protocol Administration 11.94 UNITS/KG/HR Metoprolol Tartrate 25 mg 06/05/17 09:00 06/05/17 09:40 Lopressor PO 25 mg BID MARTINEZ Administration Nitroglycerin 1 inch 06/05/17 06:00 06/05/17 12:23 Nitro-Bid Oint TOPICAL Not Given Q6HR [facility] Nitroglycerin 0.4 mg 06/05/17 02:51 Nitrostat SUBLINGUAL Q5M PRN Chest Pain Intake and Output 06/04/17 06/05/17 06/05/17 22:59 06:59 14:59 Intake Total 240 Balance 240 Intake: Oral 240 Other: Voiding Method Toilet # Voids 1 Weight 83.915 kg 06/05/17 00:30 06/05/17 00:30 EKG Interpretations (text) EKG reveals sinus mechanism with T-wave inversions in the inferior leads. Assessment and Plan Plan: ASSESSMENT 1. Unstable angina with recent history of acute myocardial infarction 2. Coronary artery disease 3. Essential hypertension 4. Hypothyroidism 5. Chronic tobacco abuse PLAN This patient should be transferred as an inpatient to selective care unit. This was discussed with Dr. Wei and she will possibly have coronary angiography in the next day or 2. Continue aspirin, Plavix, metoprolol and atorvastatin. Zestril should be held for hypotension. Continue IV heparin. Nurse Practitioner note has been reviewed, I agree with a documented findings and plan of care. Patient was seen and examined.
[2017-06-05 13:40] LABS: Creatine Kinase MB 0.5 ng/mL (0.0-2.4); Troponin I 0.02 ng/mL (0.000-0.034)
--- NOTE | 2017-06-05 19:09 | HP ---
HISTORY AND PHYSICAL CHIEF COMPLAINT: Chest pain and syncope. HISTORY OF PRESENT ILLNESS: This is another recent admission for this 46-year-old white female who has had 4 pregnancies and 3 deliveries. Apparently last month she had an HI and was treated in the hospital. She has right coronary artery disease. It is not clear if she has had dilatation and stenting of this vessel. She started to have the same symptoms and passed out and came to the emergency room again. HI is to be ruled out. She is also, obviously, a candidate for any arrhythmia. REVIEW OF SYSTEMS: She denies any headaches, focal neurologic deficits, cough, hemoptysis, orthopnea, PND, abdominal pain, vomiting, diarrhea, melena, hematochezia, jaundice, hematuria, frequency, renal disease, diabetes, etc. PAST MEDICAL HISTORY, FAMILY HISTORY, PERSONAL AND SOCIAL HISTORY: Reveals she is not allergic to any medication. She has had thyroidectomy, tubal ligation and possibly another. She has only been on the drugs prescribed by Cardiology after HI. She does have a strong family history of heart disease. She smokes about a half pack of cigarettes a day. She does have a history of hypertension. PHYSICAL EXAMINATION: Blood pressure is 134/87 with a pulse of 74, respiration 19 and she is afebrile. In general she appeared to be well developed, well nourished, no acute distress. Skin color is normal. Skin is warm, dry. Lymph nodes not enlarged. Head ears, eyes, nose, mouth and throat were normal. Neck veins not distended. Thyroid not enlarged. Chest is clear. Cardiac exam is normal, no murmurs or extra sounds. The abdomen soft, nontender, without visceromegaly or masses. Bowel sounds present. Extremities normal. Neurologically she is intact. IMPRESSION: 1. Unstable angina pectoris. 2. Recent acute myocardial infarction. 3. Obesity. PLAN: 1. Bed rest. 2. IV fluids. 3. Serial EKGs and enzymes. 4. Cardiology consult. MMODL / IJN: [id number] /
[2017-06-05] MEDS ORDERED: METOPROLOL TARTRATE 25 MG TAB PO SCH (21:00)
[2017-06-06 03:09] LABS: Cholesterol 154 mg/dL (<200); HDL Cholesterol 50 mg/dL (40-60)
[2017-06-06] MEDS: HEPARIN SODIUM,PORCINE/D5W PMX 25,000 UNIT in DEXTROSE/WATER 1 500ML.BAG IV SCH (04:19)
[2017-06-06] MEDS: NITROGLYCERIN OINT 1 INCH/GM PACKET TOPICAL SCH ×4 (05:52→17:54)
[2017-06-06] MEDS: LEVOTHYROXINE 112 MCG TAB PO SCH (05:52)
[2017-06-06] MEDS: ATORVASTATIN 80 MG TAB PO SCH (08:13)
[2017-06-06] MEDS: ASPIRIN 325 MG TAB PO SCH (08:14)
[2017-06-06] MEDS: METOPROLOL TARTRATE 25 MG TAB PO SCH ×2 (08:14→20:13)
[2017-06-06] MEDS: NICOTINE 21MG/24HR PATCH TRANSDERM SCH (08:14)
[2017-06-06] MEDS: CLOPIDOGREL 75 MG TAB PO SCH (08:14)
[2017-06-06] MEDS ORDERED: IV FLUID CONTINUATION 850 ML IV ONE (08:32)
[2017-06-06] MEDS ORDERED: SODIUM CHLORIDE 0.9% 1,000 ML in EMPTY BAG 1 BAG IV ONE (08:36)
[2017-06-06] MEDS ORDERED: ALPRAZolam 0.5 MG TAB PO PRN (08:36)
[2017-06-06] MEDS ORDERED: NITROGLYCERIN SL TABS 0.4 MG TAB SUBLINGUAL PRN ×2 (08:36→10:07)
[2017-06-06] MEDS ORDERED: ALPRAZolam 0.25 MG TAB PO PRN (08:36)
[2017-06-06] MEDS ORDERED: CLOPIDOGREL 75 MG TAB PO SCH (09:00)
[2017-06-06] MEDS ORDERED: ASPIRIN 325 MG TAB PO SCH (09:00)
[2017-06-06] MEDS ORDERED: ATORVASTATIN 80 MG TAB PO SCH (09:00)
[2017-06-06] MEDS ORDERED: MIDAZOLAM 2 MG/2 ML VIAL IV ONE (09:25)
[2017-06-06] MEDS ORDERED: LIDOCAINE 2% INJ 20 MG/ML SQ ONE (09:27)
[2017-06-06] MEDS ORDERED: NITROGLYCERIN 1000MCG/10ML SYRINGE INTRACORON ONE (09:39)
[2017-06-06] MEDS ORDERED: BIVALIRUDIN BOLUS 250 MG/50 ML IV ONE (09:42)
[2017-06-06] MEDS ORDERED: BIVALIRUDIN 250 MG in SODIUM CHLORIDE 0.9% 50 ML IV ONE (09:43)
[2017-06-06] MEDS ORDERED: IOHEXOL 350 MG/ML 125ML BOTTLE INJ ONE (09:59)
[2017-06-06] MEDS ORDERED: CLOPIDOGREL 75 MG TAB PO ONE (10:00)
[2017-06-06] MEDS ORDERED: MAG HYDROX/AL HYDROX/SIMETH 30 ML CUP PO PRN (10:07)
[2017-06-06] MEDS ORDERED: ATROPINE SULFATE 0.1 MG/ML 10ML SYRINGE IV PRN (10:07)
[2017-06-06] MEDS ORDERED: ZOLPIDEM 5 MG TAB PO PRN (10:07)
[2017-06-06] MEDS ORDERED: RX INFO: IV CONTRAST WAS GIVEN 1 EACH MISC MISCELLANE PRN (10:07)
[2017-06-06] MEDS ORDERED: SODIUM CHLORIDE 0.9% 1,000 ML IV SCH (10:15)
--- NOTE | 2017-06-06 10:40 | CC ---
CARDIAC CATHETERIZATION REPORT DATE OF SERVICE: 06/06/2017 PERFORMING PHYSICIAN: Henry Wei MD, [employer]. PROCEDURE PERFORMED: 1. Selective right and left coronary angiogram. 2. Left heart catheterization. 3. Successful stenting of the proximal RCA using 2.75 x 18 mm Xience JOSE with good angiographic results. INDICATION: This is a pleasant 46-year-old female patient who is known to have severe underlying CAD and prior stenting of the left circumflex and LAD, presented to the hospital with chest discomfort and EKG changes consistent with ischemia. In view of that, a heart catheterization was recommended. APPROACH: Right common femoral artery. COMPLICATION: None. LEVEL OF SEDATION: Moderate with sedation length of 40 minutes. PROCEDURE DESCRIPTION: After obtaining an informed consent, the patient was brought to the [facility] [facility]. The right common femoral artery was cannulated using micropuncture technique, the micropuncture wire passed easily. Then I placed a 6-Sami sheath in the right common femoral artery. Subsequently, I did selective right and left coronary angiogram. Selective right coronary angiogram was performed using an Amplatzer 1 catheter. Selective left coronary angiogram was performed using a JL4 catheter. After that, I did left heart catheterization using 6-Sami pigtail catheter. After that, I did intervene on the right coronary artery. Please see a separate paragraph for that. SELECTIVE CORONARY ANGIOGRAM: 1. The RCA is a large caliber vessel and it is a dominant vessel. The RCA has posterior takeoff. The proximal RCA has a lesion that appeared to be in the range of 70%. The mid RCA appeared to be angiographically normal and the RCA distally is angiographically normal and bifurcates into PDA and PLV branches. Both are angiographically normal. 2. The left main is angiographically normal. It bifurcates into the left circumflex and left anterior descending artery. 3. The circumflex is a large caliber vessel. It is a nondominant vessel with a proximal left circumflex appeared to have mild disease only. The mid left circumflex appeared to have mild disease only and gives rise into a large OM branch which appeared to have mild disease only. The left circumflex after that is stented and the stent is patent. 4. The left anterior descending artery - The proximal LAD appeared to have a lesion in the range of 50%. The mid LAD appeared to be stented and the stent is patent. The LAD in the mid to distal portion just distal to the stent appeared to have another lesion in the range of 50%. The LAD gives rise into 2 diagonal branches. They are moderate caliber vessels with mild disease only. HEMODYNAMICS: The left ventricular end-diastolic pressure was 17 mmHg and no gradient was identified across the aortic valve. Left ventriculography was not performed. PCI of the RCA anticoagulation was initiated using Angiomax. Subsequently, I took an Amplatzer 1 guiding catheter and the RCA was engaged. A whisper wire was used to wire the right coronary artery. After that, I did PTCA ballooning using 2.5 x 12 mm balloon, then I deployed a 275 x 18 mm Xience JOSE where the stent was positioned under fluoroscopic guidance and deployed under 14 atmospheres for 20 seconds. The following angiogram showed good angiographic results without perforation and without dissection with good flow in the RCA. CONCLUSION: 1. Severe disease involving the proximal right coronary artery which has posterior takeoff. 2. Normal left main coronary artery. 3. Patent stent in the left circumflex coronary artery. 4. Patent stent in the mid left anterior descending artery with intermediate disease involving the proximal and mid to distal left anterior descending artery, seems to be unchanged as compared to before. 5. Successful stenting of the proximal right coronary artery using 275 x 18 mm Xience JOSE with good angiographic results. POSTPROCEDURE MANAGEMENT: 1. Dual anti-platelet therapy. 2. Risk factor modifications. 3. Follow up with the patient. KAT / SASHA: [id number] /
[2017-06-06] MEDS ORDERED: HYDROmorphone 0.5 MG/0.5 ML SYRINGE IVP STA ×2 (11:26→18:12)
--- NOTE | 2017-06-06 16:16 | PN ---
PROGRESS NOTE CHIEF COMPLAINT: Chest pain and CAD. HISTORY OF PRESENT ILLNESS: This lady was stable through the night and is going for a cardiac cath. PHYSICAL EXAM: Deferred at this time because she is on her way down for a cardiac cath. IMPRESSION: 1. Unstable angina pectoris. 2. Recent acute myocardial infarction. 3. Coronary artery disease. PLAN: Await results of cardiac cath today. MMODL / IJN: [id number] /
[2017-06-07] MEDS: HEPARIN SODIUM,PORCINE/D5W PMX 25,000 UNIT in DEXTROSE/WATER 1 500ML.BAG IV SCH (00:14)
[2017-06-07] MEDS: NITROGLYCERIN OINT 1 INCH/GM PACKET TOPICAL SCH ×3 (00:14→12:41)
[2017-06-07 06:04] LABS: Non-African American GFR(MDRD) >60 (>60 ml/min/1.73 sqM)
[2017-06-07] MEDS: LEVOTHYROXINE 112 MCG TAB PO SCH (06:16)
[2017-06-07] MEDS: NICOTINE 21MG/24HR PATCH TRANSDERM SCH (08:36)
[2017-06-07] MEDS: METOPROLOL TARTRATE 25 MG TAB PO SCH (08:36)
[2017-06-07] MEDS: CLOPIDOGREL 75 MG TAB PO SCH (08:36)
[2017-06-07] MEDS: ASPIRIN 325 MG TAB PO SCH (08:37)
[2017-06-07] MEDS: ATORVASTATIN 80 MG TAB PO SCH (08:38)
[2017-06-07 10:15] VITALS: RESP 16
[2017-06-07 14:28] VITALS: BP 131/88; PULSE 71; TEMP 97.2
--- NOTE | 2017-06-07 14:32 | P.PN ---
Subjective Principal diagnosis: Unstable angina This is a pleasant 46-year-old female patient who is known to have coronary artery disease and status post a stenting of the left circumflex is a setting of acute inferior ST elevation myocardial infarction a few days ago presented back to the hospital complaining of chest discomfort. She is also known to have severe disease involving the LAD which was a stented before she was discharged from the hospital recently. 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 She underwent successful stenting of the RCA with a good angiographic results and without any complications. The procedure was performed from the right groin which is soft and nontender and without any bruises. From the cardiovascular standpoint of view, the patient can be discharged home. Objective - Vital Signs Vital signs: Vital Signs Temp 97.2 F L 06/07/17 12:00 Pulse 71 06/07/17 12:00 Resp 16 06/07/17 12:00 BP 131/88 06/07/17 12:00 Pulse Ox 95 06/07/17 12:00 Intake & Output 06/06/17 06/07/17 06/07/17 18:59 06:59 18:59 Intake Total 1573.75 320 430 Balance 1573.75 320 430 Weight 85 kg Intake: IV 274.75 320 10 Sodium Chloride 0.9% 1, 10 000 ml @ 100 mls/hr IV . Q10H AMRTINEZ Rx#:[id number] Sodium Chloride 0.9% 1, 320 000 ml In Empty Bag 1 bag @ 1 ML/KG/HR 84.5 mls/hr IV .[id number] ONE Rx#: [id number] Intake, IV Titration 400 Amount Sodium Chloride 0.9% 1, 400 000 ml @ 100 mls/hr IV . Q10H MARTINEZ Rx#:[id number] Oral 899 420 Other: Voiding Method Toilet Toilet - Constitutional General appearance: Present: no acute distress - Respiratory Respiratory: bilateral: CTA - Cardiovascular Rhythm: regular Heart sounds: normal: S1, S2 - Labs CBC & Chem 7: 06/05/17 00:30 06/07/17 05:27 Assessment and Plan Plan: This is a pleasant 46-year-old female patient was known CAD who presented to the hospital with a chest discomfort and underwent the cath and stenting of the RCA. She is on dual antiplatelet therapy and statin. From a perivascular standpoint of view, she can be discharged home
--- NOTE | 2017-06-08 11:45 | DS ---
DISCHARGE SUMMARY CHIEF COMPLAINT: Chest pain. HISTORY OF PRESENT ILLNESS AND PHYSICAL EXAM: Details of this lady's history and physical can be found in the initial workup. LABORATORY STUDIES: While she was in the hospital, she had laboratory studies, details of which can be found in the laboratory section of her chart. COURSE IN THE HOSPITAL: After admission, she was placed on bedrest, started on intravenous fluids and she was seen by Cardiology and taken for cardiac cath, where she had a 3rd stent placed. She did well postoperatively and it was felt that she could go on the . Follow up with us in a day or 2 and Cardiology shortly thereafter. FINAL DIAGNOSIS: 1. Unstable angina pectoris. 2. Coronary artery disease. 3. Status post recent myocardial infarction. OPERATIONS: Cardiac cath and stenting. CONSULTATIONS: Cardiology. She is improved. MMODL / IJN: [id number] /
== END 2017-06-07 15:57 | disposition home or self-care (01) | DRG 246 ==
LOC: EC 00:20 → 3OBS 02:49 → OBSVTOIN 11:18 → 6SEL 19:14
PROVIDERS: ADMIT Family Medicine; ATTEND Family Medicine
PROC: B2111ZZ Fluoroscopy of Multiple Coronary Arteries using Low Osmolar Contrast (ICD-10-PCS; 2017-06-06)
PROC: 027034Z Dilation of Coronary Artery, One Artery with Drug-eluting Intraluminal Device, Percutaneous Approach (ICD-10-PCS; principal; 2017-06-06 08:30)
PROC: 4A023N7 Measurement of Cardiac Sampling and Pressure, Left Heart, Percutaneous Approach (ICD-10-PCS; 2017-06-06 08:30)
DX: I25.110 Atherosclerotic heart disease of native coronary artery with unstable angina pectoris (principal); I21.3 ST elevation (STEMI) myocardial infarction of unspecified site; I10 Essential (primary) hypertension; E03.9 Hypothyroidism, unspecified; E66.9 Obesity, unspecified; F17.200 Nicotine dependence, unspecified, uncomplicated; I25.2 Old myocardial infarction; F41.9 Anxiety disorder, unspecified; Z79.02 Long term (current) use of antithrombotics/antiplatelets; Z79.82 Long term (current) use of aspirin; Z79.899 Other long term (current) drug therapy; Z95.5 Presence of coronary angioplasty implant and graft
CPT/HCPCS: 36415; 70450; 71020; 80053; 80061; 82550; 82553; 82565; 83735; 84484; 85025; 85610; 85730; 93005; 93458; 94760; 96361; 96365; 96376; 99291

== ENCOUNTER 2019-04-28 19:38 | Emergency (ER) | payer OTHER ==
[2019-04-28 20:00] VITALS: RESP 18; TEMP 98.3
[2019-04-28 21:12] LABS: Basophils # (A) 0.1 k/uL (0-0.2); Basophils % (A) 1 %; Eosinophils # (A) 0.1 k/uL (0-0.7); Eosinophils % (A) 1 %; HCT 47.2 % (34.0-46.0); HGB 15.9 gm/dL (11.4-16.0); Lymphocytes # (A) 2.8 k/uL (1.0-4.8); Lymphocytes % (A) 30 %; MCH 31.1 pg (25.0-35.0); MCHC 33.7 g/dL (31.0-37.0); MCV 92.3 fL (80.0-100.0); Monocytes # (A) 0.6 k/uL (0-1.0); Monocytes % (A) 7 %; Neutrophils # (A) 5.6 k/uL (1.3-7.7); Neutrophils % (A) 59 %; Platelet Count 278 k/uL (150-450); RBC 5.12 m/uL (3.80-5.40); RDW 12.8 % (11.5-15.5); WBC 9.4 k/uL (3.8-10.6)
[2019-04-28 21:18] LABS: Appearance,Urine Cloudy (Clear); Bacteria,Urine Rare /hpf; Bilirubin,Urine Negative (Negative); Blood,Urine Negative (Negative); Color,Urine Light Yellow; Glucose,Urine (UA) Negative (Negative); Ketones,Urine Negative (Negative); Leukocyte Esterase,Urine Trace (Negative); Nitrite,Urine Negative (Negative); Protein,Urine Negative (Negative); RBC,Urine 1 /hpf (0-5); Specific Gravity,Urine 1.003 (1.001-1.035); Squamous Epithelial Cell,Urine 3 /hpf (0-4); Urobilinogen,Urine <2.0 mg/dL (<2.0); WBC,Urine 7 /hpf (0-5)
[2019-04-28 21:22] LABS: Albumin 4.8 g/dL (3.5-5.0); Calcium 9.8 mg/dL (8.4-10.2); Magnesium 2.4 mg/dL (1.6-2.3); Potassium 4.9 mmol/L (3.5-5.1); Total Bilirubin 0.6 mg/dL (0.2-1.3); Total Protein 8.5 g/dL (6.3-8.2)
--- NOTE | 2019-04-28 21:49 | CT ---
History: ITS.REASON CT Reason: Pain Exam: CT NECK With Contrast Technique more: CTDI is 6.77 mGy and DLP is 226.6 mGy-cm. Technique more: This CT exam was performed using one or more of the following dose reduction techniques: automated exposure control, adjustment of the mA and/or kV according to patient size, and/or use of iterative reconstruction technique. Comparison: None available FINDINGS: The visualized paranasal sinuses and mastoids are clear. No evidence of abscess, mass or adenopathy identified. The epiglottis and aryepiglottic folds appear within limits. No evidence of airway narrowing. Apical emphysema noted. Right paracentral C5-6 possible disc herniation and possible extrusion of disc material along the dorsal aspect of the C5 vertebral body for example sagittal 32 and 33. Asymmetry of the thyroid gland with very small appearing right lobe. No retropharyngeal soft tissue swelling. The parotid and submandibular glands appear within limits. IMPRESSION: No evidence of abscess, mass or adenopathy identified. May follow-up with nonemergent ENT consult as warranted. Apical emphysema noted. Right paracentral C5-6 possible disc herniation and possible extrusion of disc material along the dorsal aspect of the C5 vertebral body for example sagittal 32 and 33.
[2019-04-28 21:56] VITALS: PULSE 90
[2019-04-28] MEDS ORDERED: LISINOPRIL 20 MG TAB PO STA (21:58)
[2019-04-28 22:32] LABS: T4, Free (Free Thyroxine) 0.65 ng/dL (0.78-2.19)
--- NOTE | 2019-04-28 22:47 | ED ---
General Adult HPI - General Chief complaint: ENT Stated complaint: Lump in throat, back pain Time Seen by Provider: 04/28/19 20:01 Source: patient Limitations: no limitations - History of Present Illness Initial comments: 48 year-old female patient presents to the emergency department today for evaluation of a lump to the right side of her neck. Patient states the lump has been present for the last year however over the last couple weeks feels like it is growing larger. States her last 2 days she has had difficulty swallowing and is choking on her food. Patient denies any fever or chills. Denies any redness or swelling on the outside of her neck. Patient is also reporting right lower back pain that has been present for a year however worsening over the last couple of weeks. She denies any radiation of the pain down her legs. Denies any numbness or tingling to her legs. Denies any saddle anesthesia or loss of bowel or bladder control. States that she did have blood in her urine a few days ago. Denies any history of kidney stones, dysuria, urinary frequency, urinary urgency. Denies any fever or chills. Patient has history of coronary artery disease and hypothyroid however has not been taking her medications for quite some time due to lack of insurance. Patient denies any recent rash, shortness breath, chest pain, abdominal pain, nausea, vomiting, diarrhea, constipation, dizziness, weakness, headache, visual changes, or any other complaints. - Related Data Home Medications Medication Instructions Recorded Confirmed Ibuprofen [Motrin Ib] 600 mg PO TID PRN 04/28/19 04/28/19 Previous Rx's Medication Instructions Recorded Levothyroxine Sodium [Synthroid] 88 mcg PO DAILY #30 tab 04/29/19 Lisinopril [Zestril] 20 mg PO DAILY #30 tab 04/29/19 Allergies Allergy/AdvReac Type Severity Reaction Status Date / Time No Known Allergies Allergy Verified 04/28/19 21:47 Review of Systems ROS Statement: Those systems with pertinent positive or pertinent negative responses have been documented in the HPI. ROS Other: All systems not noted in ROS Statement are negative. Past Medical History Past Medical History: Coronary Artery Disease (CAD), Chest Pain / Angina, Hypertension, Myocardial Infarction ([place]), Thyroid Disorder Last Myocardial Infarction Date:: 05/25/2017 History of Any Multi-Drug Resistant Organisms: None Reported Past Surgical History: Heart Catheterization With Stent, Orthopedic Surgery Additional Past Surgical History / Comment(s): thyroidectomy Past Anesthesia/Blood Transfusion Reactions: No Reported Reaction Past Psychological History: Anxiety, Depression Smoking Status: Current every day smoker Past Alcohol Use History: Rare Past Drug Use History: None Reported General Exam Limitations: no limitations General appearance: alert, in no apparent distress, other (This is a well- developed, well-nourished adult female patient in no acute distress. Vital signs upon presentation are temperature 98.3F, pulse 96, respirations 18, blood pressure 159/121, pulse ox 98% on room air.) Eye exam: Present: normal appearance, PERRL, EOMI. Absent: scleral icterus, conjunctival injection, periorbital swelling ENT exam: Present: normal exam, normal oropharynx, mucous membranes moist Neck exam: Present: normal inspection, other (Palpable right-sided anterior cervical lymph node). Absent: tenderness, meningismus, lymphadenopathy Respiratory exam: Present: normal lung sounds bilaterally. Absent: respiratory distress, wheezes, rales, rhonchi, stridor Cardiovascular Exam: Present: regular rate, normal rhythm, normal heart sounds. Absent: systolic murmur, diastolic murmur, rubs, gallop, clicks GI/Abdominal exam: Present: soft, normal bowel sounds. Absent: distended, tende rness, guarding, rebound, rigid Back exam: Present: normal inspection. Absent: CVA tenderness (R), CVA tenderness (L), vertebral tenderness Neurological exam: Present: alert, oriented X3, CN II-XII intact Psychiatric exam: Present: normal affect, normal mood Skin exam: Present: warm, dry, intact, normal color. Absent: rash Course Vital Signs 04/28/19 04/28/19 04/28/19 19:54 21:53 23:02 Temperature 98.3 F Pulse Rate 96 90 Respiratory 18 18 Rate Blood Pressure 159/121 178/120 160/110 O2 Sat by Pulse 98 95 Oximetry 04/28/19 23:47 Temperature Pulse Rate Respiratory Rate Blood Pressure 135/103 O2 Sat by Pulse Oximetry Medical Decision Making - Medical Decision Making 48-year-old female patient presented to the emergency department today for evaluation of foreign body sensation to the throat, right low back pain, and feeling unwell. Physical examination was relatively unremarkable. She is no spinal tenderness. Neurologically intact with no focal deficits. There was a palpable anterior cervical lymph nodes noted on the right. Visualization of the oropharynx is unremarkable. Labs reviewed and did reveal elevated TSH at 24.800, free T4 0.65. Urinalysis was negative for any evidence of infection or hematuria. Blood pressure was elevated throughout stay. Patient admits she has not been taking any of her medications due to no insurance. Did discuss findings and results with the patient. We will give prescription for Synthroid and lisinopril. She is instructed to follow-up with the primary care physician for recheck as soon as possible. Return is recommended to her. She was given a prescription card. She is instructed to follow-up with the ear, nose, throat specialist for further evaluation as soon as possible. Return parameters discussed in detail. She verbalizes understanding and agrees with this plan. - Lab Data Result diagrams: 04/28/19 20:56 04/28/19 20:56 Lab Results 04/28/19 04/28/19 04/28/19 Range/Units 20:56 20:56 20:56 WBC 9.4 (3.8-10.6) k/uL RBC 5.12 (3.80-5.40) m/uL Hgb 15.9 (11.4-16.0) gm/dL Hct 47.2 H (34.0-46.0) % MCV 92.3 (80.0-100.0) fL MCH 31.1 (25.0-35.0) pg MCHC 33.7 (31.0-37.0) g/dL RDW 12.8 (11.5-15.5) % Plt Count 278 (150-450) k/uL Neutrophils % 59 % Lymphocytes % 30 % Monocytes % 7 % Eosinophils % 1 % Basophils % 1 % Neutrophils # 5.6 (1.3-7.7) k/uL Lymphocytes # 2.8 (1.0-4.8) k/uL Monocytes # 0.6 (0-1.0) k/uL Eosinophils # 0.1 (0-0.7) k/uL Basophils # 0.1 (0-0.2) k/uL Sodium 141 (137-145) mmol/L Potassium 4.9 (3.5-5.1) mmol/L Chloride 105 (98-107) mmol/L Carbon Dioxide 26 (22-30) mmol/L Anion Gap 10 mmol/L BUN 10 (7-17) mg/dL Creatinine 0.95 (0.52-1.04) mg/dL Est GFR (CKD-EPI)AfAm 84 (>60 ml/min/1.73 sqM) Est GFR (CKD-EPI)NonAf 73 (>60 ml/min/1.73 sqM) Glucose 102 H (74-99) mg/dL Calcium 9.8 (8.4-10.2) mg/dL Magnesium 2.4 H (1.6-2.3) mg/dL Total Bilirubin 0.6 (0.2-1.3) mg/dL AST 27 (14-36) U/L ALT 22 (9-52) U/L Alkaline Phosphatase 101 (38-126) U/L Total Protein 8.5 H (6.3-8.2) g/dL Albumin 4.8 (3.5-5.0) g/dL Lipase 77 (23-300) U/L TSH 24.800 H (0.465-4.680) mIU/L Free T4 0.65 L (0.78-2.19) ng/dL Urine Color Light Yellow Urine Appearance Cloudy H (Clear) Urine pH 6.0 (5.0-8.0) Ur Specific [place] 1.003 (1.001-1.035) Urine Protein Negative (Negative) Urine Glucose (UA) Negative (Negative) Urine Ketones Negative (Negative) Urine Blood Negative (Negative) Urine Nitrite Negative (Negative) Urine Bilirubin Negative (Negative) Urine Urobilinogen <2.0 (<2.0) mg/dL Ur Leukocyte Esterase Trace H (Negative) Urine RBC 1 (0-5) /hpf Urine WBC 7 H (0-5) /hpf Ur Squamous Epith Cells 3 (0-4) /hpf Urine Bacteria Rare H (None) /hpf - Radiology Data Radiology results: report reviewed, image reviewed CT soft tissue neck is obtained. Report was reviewed in its entirety. Impression by Dr. Benitez shows no evidence of abscess, mass, or adenopathy identified. May follow up with nonemergent ENT consult is warranted. Apical emphysema noted. Right paracentral C5 to 6 possible disc herniation possible extrusion of disc material along the dorsal aspect of C5 vertebral body. Disposition Clinical Impression: Foreign body sensation in throat, Low back pain, Hypertension, Hypothyroid Disposition: HOME SELF-CARE Condition: Good Instructions (If sedation given, give patient instructions): Hypothyroidism (ED), Acute Low Back Pain (ED), Hypertension (ED) Additional Instructions: Take medications as directed. Call the number on the Good Rx card to to find the cheapest place to obtain prescriptions. Follow-up with your primary care physician for recheck as soon as possible. Follow-up with the ears, nose, throat specialist for further evaluation as soon as possible. Return to the emergency department immediately for any new, worsening, or concerning symptoms. Prescriptions: Levothyroxine Sodium [Synthroid] 88 mcg PO DAILY #30 tab Lisinopril [Zestril] 20 mg PO DAILY #30 tab Is patient prescribed a controlled substance at d/c from ED?: No Referrals: Storm Avilez DO [STAFF PHYSICIAN] - 1-2 days Jono Corbett MD [STAFF PHYSICIAN] - 1-2 days Time of Disposition: 00:11
[2019-04-28 23:48] VITALS: BP 135/103
== END 2019-04-29 00:35 | disposition home or self-care (01) ==
LOC: EC 19:38
DX: M54.5 Low back pain (principal); R09.89 Other specified symptoms and signs involving the circulatory and respiratory systems; I10 Essential (primary) hypertension; E89.0 Postprocedural hypothyroidism; R13.10 Dysphagia, unspecified; F17.200 Nicotine dependence, unspecified, uncomplicated; Z95.5 Presence of coronary angioplasty implant and graft
CPT/HCPCS: 36415; 84439; 80053; 84443; 83690; 83735; 85025; 81001; 70491; 99284; Q9967

== ENCOUNTER 2021-02-08 01:28 | Inpatient (IN) | payer OTHER ==
[2021-02-08] MEDS ORDERED: NITROGLYCERIN OINT 1 INCH/GM PACKET TOPICAL STA (01:34)
[2021-02-08] MEDS ORDERED: SODIUM CHLORIDE 0.9% 1,000 ML IV STA (01:34)
[2021-02-08] MEDS ORDERED: HEPARIN SODIUM 1,000 UN/ML (10ML VL) IV ONE ×2 (01:34→02:35)
[2021-02-08] MEDS ORDERED: NITROGLYCERIN SL TABS 0.4 MG TAB SUBLINGUAL PRN ×3 (01:34→12:06)
[2021-02-08] MEDS ORDERED: MORPHINE SULFATE 4 MG/ML SYRINGE IV PRN (01:34)
--- NOTE | 2021-02-08 01:44 | ED ---
Chest Pain HPI - General Chief Complaint: Chest Pain Stated Complaint: Chest Pain Time Seen by Provider: 02/08/21 01:30 Source: patient, EMS, RN notes reviewed, old records reviewed Mode of arrival: EMS Limitations: no limitations - History of Present Illness Initial Comments: This is a 42-year-old female DF for evaluation patient presents today for odalys luation of chest pain positive history of chest pain persistent chest pain. History of heart disease and ST elevated NH. Patient has history of prior NH but does not follow up with cardiology. Patient has severe anterior chest pain 1 hour prior to arrival presents by EMS in severe distress with severe chest pain. MD Complaint: chest pain -: hour(s) (1) Pain Location: substernal Pain Radiation: none Severity: moderate Severity scale (1-10): 7 Quality: tightness Consistency: constant Improves With: nothing Worsens With: nothing Anginal Symptoms: nausea Other Symptoms: cough Treatments Prior to Arrival: none - Related Data Home Medications Medication Instructions Recorded Confirmed Ibuprofen [Motrin Ib] 600 mg PO TID PRN 04/28/19 04/28/19 Previous Rx's Medication Instructions Recorded Levothyroxine Sodium [Synthroid] 88 mcg PO DAILY #30 tab 04/29/19 lisinopriL [Zestril] 20 mg PO DAILY #30 tab 04/29/19 Allergies Allergy/AdvReac Type Severity Reaction Status Date / Time No Known Allergies Allergy Verified 04/28/19 21:47 Review of Systems ROS Statement: Those systems with pertinent positive or pertinent negative responses have been documented in the HPI. ROS Other: All systems not noted in ROS Statement are negative. Past Medical History Past Medical History: Coronary Artery Disease (CAD), Chest Pain / Angina, Hypertension, Myocardial Infarction ([place]), Thyroid Disorder Last Myocardial Infarction Date:: 05/25/2017 History of Any Multi-Drug Resistant Organisms: None Reported Past Surgical History: Heart Catheterization With Stent, Orthopedic Surgery Additional Past Surgical History / Comment(s): thyroidectomy Past Anesthesia/Blood Transfusion Reactions: No Reported Reaction Past Psychological History: Anxiety, Depression Smoking Status: Unknown if ever smoked Past Alcohol Use History: Rare Past Drug Use History: None Reported General Exam Limitations: no limitations General appearance: alert, anxious, in distress Head exam: Present: atraumatic, normocephalic, normal inspection Eye exam: Present: normal appearance, PERRL, EOMI. Absent: scleral icterus, conjunctival injection, periorbital swelling ENT exam: Present: normal exam, mucous membranes moist Neck exam: Present: normal inspection. Absent: tenderness, meningismus, lymphadenopathy Respiratory exam: Present: normal lung sounds bilaterally. Absent: respiratory distress, wheezes, rales, rhonchi, stridor Cardiovascular Exam: Present: regular rate, normal rhythm, normal heart sounds. Absent: systolic murmur, diastolic murmur, rubs, gallop, clicks GI/Abdominal exam: Present: soft, normal bowel sounds. Absent: distended, tenderness, guarding, rebound, rigid Extremities exam: Present: normal inspection, full ROM, normal capillary refill. Absent: tenderness, pedal edema, joint swelling, calf tenderness Back exam: Present: normal inspection Neurological exam: Present: alert, oriented X3, CN II-XII intact Psychiatric exam: Present: normal affect, normal mood Skin exam: Present: warm, dry, intact, normal color. Absent: rash Course Vital Signs 02/08/21 01:29 Temperature 97.4 F L Pulse Rate 80 Respiratory 16 Rate Blood Pressure 128/95 O2 Sat by Pulse 99 Oximetry - Reevaluation(s) Reevaluation #1: 02/08/21 01:39 Medical record is reviewed 02/08/21 01:39 STEMI was paged out on patient arrival to the emergency department Reevaluation #2: 02/08/21 01:39 Patient does have significant chest pain although does appear to be improving she is sweaty and short of breath - Consultations Consultation #1: Spoke with cardiology who will take patient to the [facility] Chest Pain MDM - MDM 50 female to the ER with history of heart disease history of stents coming with STEMI. Patient will be admitted to the [facility] for coronary intervention Critical Care Time Critical Care Time: Yes Total Critical Care Time: 31 Disposition Clinical Impression: ST elevation myocardial infarction (STEMI) Disposition: ADMITTED IP TO THIS HOSP Condition: Serious Is patient prescribed a controlled substance at d/c from ED?: No Referrals: Arely Bond MD [Primary Care Provider] - 1-2 days
--- NOTE | 2021-02-08 01:47 | XR ---
EXAM: XR Chest, 1 View CLINICAL HISTORY: chest pain TECHNIQUE: Frontal view of the chest. COMPARISON: 06/05/2017 FINDINGS: Lungs: No significant abnormality. No consolidation. Pleural space: No significant abnormality. No pneumothorax. Heart: No significant abnormality. No cardiomegaly. Mediastinum: No significant abnormality. Bones/joints: No acute osseous abnormality. IMPRESSION: No acute cardiopulmonary process.
[2021-02-08 02:00] LABS: Basophils # (A) 0.1 k/uL (0-0.2); Basophils % (A) 0 %; Eosinophils # (A) 0.1 k/uL (0-0.7); Eosinophils % (A) 1 %; HCT 41.6 % (34.0-46.0); HGB 14.1 gm/dL (11.4-16.0); Lymphocytes % (A) 28 %; MCH 31.5 pg (25.0-35.0); MCV 92.8 fL (80.0-100.0); Monocytes # (A) 0.5 k/uL (0-1.0); Monocytes % (A) 5 %; Neutrophils # (A) 6.9 k/uL (1.3-7.7); Neutrophils % (A) 64 %; Platelet Count 315 k/uL (150-450); RBC 4.48 m/uL (3.80-5.40); RDW 12.3 % (11.5-15.5); WBC 10.7 k/uL (3.8-10.6)
[2021-02-08] MEDS ORDERED: IV FLUID CONTINUATION 1,000 ML IV ONE (02:10)
[2021-02-08] MEDS ORDERED: LIDOCAINE 1% INJ 10MG/ML (20 ML MDV) ONE (02:10)
[2021-02-08] MEDS ORDERED: fentaNYL (PF) 50 MCG/ML 2 ML AMP ONE (02:11)
[2021-02-08 02:12] LABS: ALT 21 U/L (4-34); AST 25 U/L (14-36); African American GFR (CKD) >90 (>60 ml/min/1.73 sqM); Albumin 3.9 g/dL (3.5-5.0); Alkaline Phosphatase 122 U/L (38-126); Anion Gap 7 mmol/L; Blood Urea Nitrogen 12 mg/dL (7-17); Carbon Dioxide 23 mmol/L (22-30); Chloride 109 mmol/L (98-107); Glucose 177 mg/dL (74-99); Non-African American GFR(CKD) 82 (>60 ml/min/1.73 sqM); Potassium 4.1 mmol/L (3.5-5.1); Sodium 139 mmol/L (137-145); Total Bilirubin 0.2 mg/dL (0.2-1.3); Total Protein 6.7 g/dL (6.3-8.2)
[2021-02-08] MEDS ORDERED: LIDOCAINE 1% INJ 10MG/ML (20 ML MDV) SQ ONE (02:16)
[2021-02-08] MEDS ORDERED: MIDAZOLAM 2 MG/2 ML VIAL IV ONE (02:17)
[2021-02-08] MEDS: fentaNYL (PF) 50 MCG/ML 2 ML AMP IV ONE ×2 (02:17→02:20)
[2021-02-08 02:32] LABS: INR 0.9 (<1.2); Prothrombin Time 9.6 sec (9.0-12.0)
[2021-02-08] MEDS ORDERED: TICAGRELOR 90 MG TAB ONE (02:36)
[2021-02-08] MEDS ORDERED: TICAGRELOR 90 MG TAB PO ONE (02:38)
[2021-02-08] MEDS ORDERED: NITROGLYCERIN 1000MCG/10ML SYRINGE INTRACORON ONE (02:43)
[2021-02-08] MEDS ORDERED: IOPAMIDOL-370 125ML BTL INJ ONE (02:46)
[2021-02-08] MEDS ORDERED: IOPAMIDOL-370 100ML BTL INJ ONE (02:52)
[2021-02-08] MEDS ORDERED: RX INFO: IV CONTRAST WAS GIVEN 1 EACH MISC MISCELLANE PRN (03:03)
[2021-02-08] MEDS ORDERED: ATROPINE SULFATE 0.1 MG/ML 10ML SYRINGE IV PRN (03:03)
[2021-02-08] MEDS ORDERED: SODIUM CHLORIDE 0.9% 1,000 ML IV SCH (03:15)
[2021-02-08 03:16] LABS: Glucose,Whole Blood 132 mg/dL (75-99)
--- NOTE | 2021-02-08 08:21 | CC ---
CARDIAC CATHETERIZATION REPORT INDICATION: Acute inferior wall myocardial infarction. PROCEDURE NOTE: After obtaining informed consent, left heart catheterization and coronary angiogram are performed via the right femoral artery using standard Judkin's catheter. The patient tolerated the procedure well without any obvious immediate complications. The patient received moderate conscious sedation. Total sedation time was 17 minutes. The right coronary artery was engaged using a right Amplatz catheter. FINDINGS: HEMODYNAMICS: Left ventricular end-diastolic pressure is 20 mm. There is no significant gradient across the aortic valve. LEFT VENTRICULOGRAM: Not performed. ANGIOGRAPHIC DATA: LEFT MAIN: The left main coronary artery is a normal-sized vessel, appears calcified but is free of significant stenosis. Divides into left anterior descending coronary artery and circumflex coronary artery. The mid LAD was stented previously. Stent appears patent. There is a moderate area of in-stent restenosis. At its worst, it seems to be a 60-70 percent stenosis, very distally as the LAD reaches the apex, there is another 70% to 80% stenosis. Diagonal branches are free . CIRCUMFLEX CORONARY ARTERY: The second OM branch appears occluded. [place] AV groove circ was previously stented that appears patent. Proximal to the stent there is a 50% stenosis noted. RIGHT CORONARY ARTERY: Right coronary artery was stented in the proximal part. The stent appears patent. It divides into PDA and PLV. The PDA has 30% to 40% stenosis. CONCLUSION: Three-vessel coronary artery disease as described above with an acutely occluded OM2 with significant disease involving [place] circ and LAD. PLAN: Patient will undergo angioplasty with stent placement of the OM2 branch. MMODL / IJN: [id number] /
--- NOTE | 2021-02-08 08:29 | CC ---
CARDIAC CATHETERIZATION REPORT CHIEF COMPLAINT: Chest pain. HISTORY OF PRESENT ILLNESS: This is a 50-year-old lady with known coronary artery disease status post multivessel angioplasty, who does not follow with Cardiology on a regular basis, but came to hospital with acute inferior wall myocardial infarction and we were called as part of the STEMI alert. I met the patient in the cardiac cath rn and she complained of chest pain. She stated that initially she had chest pain yesterday afternoon that resolved and early this morning, the chest pain suddenly came on more intensely and persisted due to which she came to hospital. The chest pain is precardial, severe intensity, crushing in nature and without clear-cut relieving factors. EKG shows acute inferior wall myocardial infarction. The patient was advised to undergo emergent cardiac catheterization. PAST MEDICAL HISTORY: Significant for coronary artery disease status post multivessel angioplasty. MEDICATIONS: Are as charted. ALLERGIES: None. FAMILY HISTORY: Significant for premature coronary artery disease. SOCIAL HISTORY: Significant for smoking. There is no history of EtOH abuse or drug abuse. REVIEW OF SYSTEMS: HEENT is unremarkable. Cardiac as described above. Respiratory as described above. GI negative. negative. Endocrine negative. Allergy/Immunology: Negative. SKIN: Negative. MUSCULOSKELETAL: Significant for arthritis. Psychosocial negative. Derm negative. Constitutional negative. Oncological negative. GUM ROLLING MACHINE TENDER: Negative. EXAM: Comfortable at rest. Vital signs are stable. There is no jugular venous distention. Carotid upstroke is normal. There is no bruit. Chest exam reveals good air entry bilaterally. Heart exam reveals first and second heart sounds. No gallop. No murmur. Abdomen is soft. Exam of extremities did not reveal any edema. LABORATORY DATA: Labs are pending. ASSESSMENT: Acute inferior wall myocardial infarction. PLAN: Patient will undergo emergent cardiac catheterization with a view to performing angioplasty. MMODL / IJN: [id number] /
--- NOTE | 2021-02-08 08:37 | PTCA ---
PERCUTANEOUSTRANS CORORONARY ANGIOGRAPHY Mrs. Rendon is a 50-year-old female with known history of coronary artery disease status post stenting in 2017 who presented with an acute myocardial infarction, underwent cardiac catheterization by Dr. Torrez, was found to have totally occluded second obtuse marginal branch. In view of that, recommendation was made regarding angioplasty and stenting. The procedure as well as the risks and complications were discussed with the patient who is in full understanding and agreement. PROCEDURE DETAILS: A 6-Syri[place] FR4 guiding catheter introduced in the system. After cannulating the left main, a 0.014 balanced medium weight J-wire was advanced across the lesion, positioned distally. Then a 2.25 x 12 mm Trek balloon was advanced and one inflation at 8 atmospheres was done. Following that, the balloon was removed and a 2.75 x 15 mm Xience Giovanna stent was advanced, deployed and was dilated at 16 atmospheres. After the last inflation, after appropriate wait, the balloon and the guidewire were withdrawn back in the guiding catheter. Images were obtained, repeated. Those images reveal stable successful stenting. At that point, the guiding catheter, the balloon and the guidewire removed. The sheath was removed. Hemostasis was obtained with deployment of the Angio-Seal. There was no immediate complication. Patient was returned to his room in stable condition. Of note, the patient received an additional 4000 units of intravenous heparin as well as oral loading dose of Brilinta. Her ACT was followed. She had no chest discomfort at the end the procedure with improvement in her EKG changes. RESULTS: Successful stenting of the second obtuse marginal branch with reduction of stenosis from 100% to 0%. RECOMMENDATION: Patient to continue on aspirin, Brilinta, beta shazia, GUCCI and statin. The importance of dual antiplatelet treatment were discussed with the patient and her family and they are in full understanding and agreement. Duration of sedation is 20 minutes. MMODL / IJN: [id number] /
--- NOTE | 2021-02-08 08:37 | LTR ---
DATE OF SERVICE: 02/08/[address] Bond: I had the pleasure of performing cardiac catheterization, coronary angioplasty and stenting on Mrs. Rendon at [facility] on February 08 and a full copy of procedure note will be forwarded to you. In brief she underwent successful stenting of 2nd obtuse marginal branch. I am hopeful that this procedure will stabilize her status. Thank you again for allowing me to participate in her care. Please feel free to call for any questions. Sincerely, KAT / SSAHA: [id number] /
--- NOTE | 2021-02-08 08:46 | PN ---
PROGRESS NOTE Mrs. Renodn is a 50-year-old female who presented yesterday with an acute myocardial infarction with total occlusion of the second obtuse marginal branch, underwent stenting of that vessel. She had prior stenting of the distal left circumflex in the mid LAD in 2017. Patient has not been compliant with followup. She is feeling well this morning. She is denying any chest discomfort. Her breathing is stable. She denies any dizziness or palpitation. Hemodynamically, she is stable and continues to be in sinus mechanism. She continues to be on aspirin once a day, Brilinta 90 mg daily, Synthroid, Lipitor 80 mg daily, Zestril 5 mg twice a day, metoprolol tartrate 25 mg twice a day. PHYSICAL EXAMINATION: Blood pressure 110/70 with a heart rate in 60s. LUNGS: Clear. Heart exam: Regular rate and rhythm. S1, S2. No S3. No rub. ABDOMEN: Soft, nontender. EXTREMITIES: No edema. Right groin no hematoma. LAB DATA: Lab data revealed troponin 1.070. IMPRESSION: 1. Status post acute myocardial infarction with acute occlusion of the second obtuse marginal branch, status post stenting. 2. Prior stenting of the LAD and the distal left circumflex with obstructive disease in the LAD proximal to the stent. 3. History of hypertension. 4. Hyperlipidemia. 5. Noncompliance. RECOMMENDATION: We will continue present therapy. I will obtain an echocardiogram with Doppler to evaluate left ventricular systolic function. The patient will need to undergo revascularization of her LAD. Depending on progress that probably will be done in the next 48 hours. MMODL / IJN: [id number] /
[2021-02-08] MEDS: FAMOTIDINE 20 MG/2 ML VIAL IV SCH ×2 (09:30→20:46)
[2021-02-08] MEDS: HEPARIN SODIUM,PORCINE/PF 5,000 UNIT/0.5 ML SYRINGE SQ SCH ×2 (09:30→20:46)
[2021-02-08] MEDS: METOPROLOL TARTRATE 25 MG TAB PO SCH ×2 (09:30→20:45)
[2021-02-08] MEDS: ASPIRIN 81 MG PO SCH (09:30)
[2021-02-08] MEDS: ATORVASTATIN 80 MG TAB PO SCH (09:30)
[2021-02-08] MEDS: lisinopriL 5 MG TAB PO SCH ×2 (09:31→20:45)
[2021-02-08] MEDS: LEVOTHYROXINE 88 MCG TAB PO SCH (09:32)
[2021-02-08] MEDS: ACETAMINOPHEN TAB 325 MG TAB PO PRN (09:33)
--- NOTE | 2021-02-08 10:40 | P.HPIM ---
History of Present Illness This is a pleasant 50 years old female with past medical history of coronary artery disease status post stenting, hypertension, hypothyroidism, anxiety and depression. Presents because of one hour chest pain and since admission she has ST elevation with EMS. Her chest pain was severe and she is taken to emergent lab animal technologist with Dr. Torrez and Dr. Salazar, patient status post PCI to the second obtuse marginal branch. Currently she is in the ICU with close monitoring. She denies any symptoms. No chest pain or dyspnea. No abdominal pain. No fever. No urinary complaints She smokes a pack every 4 days, she denies alcohol or illicit tracts Vitals are stable Labs are reviewed and they are unremarkable CBC, BMP, liver enzymes, proBNP is 67, troponin is less than 0.01 and 1.07. Chest x-ray: No acute process. EKG showing ST elevation in the inferior limits with heart rate of 80 bpm and QTC 461. Patient currently is placed on aspirin, Lipitor and Brilinta Review of Systems CONSTITUTIONAL: No fever, no malaise, no fatigue. HEENT: No recent visual problems or hearing problems. Denied any sore throat. CARDIOVASCULAR: No orthopnea, PND, no palpitations, no syncope. PULMONARY: No shortness of breath, no cough, no hemoptysis. GASTROINTESTINAL: No diarrhea, no nausea, no vomiting, no abdominal pain. Normoactive bowel sounds. NEUROLOGICAL: No headaches, no weakness, no numbness. HEMATOLOGICAL: Denies any bleeding or petechiae. GENITOURINARY: Denies any burning micturition, frequency, or urgency. MUSCULOSKELETAL/RHEUMATOLOGICAL: Denies any joint pain, swelling, or any muscle pain. ENDOCRINE: Denies any polyuria or polydipsia. Past Medical History Past Medical History: Coronary Artery Disease (CAD), Chest Pain / Angina, Hypertension, Myocardial Infarction (SC), Thyroid Disorder Last Myocardial Infarction Date:: 05/25/2017 History of Any Multi-Drug Resistant Organisms: None Reported Past Surgical History: Heart Catheterization With Stent, Orthopedic Surgery Additional Past Surgical History / Comment(s): thyroidectomy Past Anesthesia/Blood Transfusion Reactions: No Reported Reaction Past Psychological History: Anxiety, Depression Smoking Status: Unknown if ever smoked Past Alcohol Use History: Rare Past Drug Use History: None Reported Medications and Allergies Home Medications Medication Instructions Recorded Confirmed Type Aspirin EC [Ecotrin] 325 mg PO DAILY 02/08/21 02/08/21 History Atorvastatin [Lipitor] 40 mg PO DAILY 02/08/21 02/08/21 History Levothyroxine Sodium [Euthyrox] 88 mcg PO DAILY 02/08/21 02/08/21 History Lisinopril-Hctz 20-12.5 mg 1 tab PO DAILY 02/08/21 02/08/21 History [Zestoretic 20-12.5] Allergies Allergy/AdvReac Type Severity Reaction Status Date / Time No Known Allergies Allergy Verified 02/08/21 06:50 Physical Exam Vitals: Vital Signs Temp Pulse Resp BP Pulse Ox 02/08/21 06:00 67 14 110/75 97 02/08/21 05:30 70 10 L 110/75 96 02/08/21 05:00 75 12 109/82 96 02/08/21 04:30 76 14 109/82 96 02/08/21 04:00 77 12 110/78 96 02/08/21 03:30 97.6 F 77 11 L 110/78 96 02/08/21 02:11 78 16 105/79 98 02/08/21 01:56 78 16 92/74 96 02/08/21 01:52 77 16 95/68 97 02/08/21 01:49 86 16 101/74 98 02/08/21 01:44 80 16 144/109 100 02/08/21 01:36 74 16 121/94 100 02/08/21 01:29 97.4 F L 80 16 128/95 99 Intake and Output 02/07/21 02/08/21 02/08/21 22:59 06:59 14:59 Intake Total 375 Output Total 0 Balance 375 Intake: IV 375 Sodium Chloride 0.9% 1, 225 000 ml @ 75 mls/hr IV . [id number] [facility] Rx#:[id number] Output: Urine 0 Other: Weight 100.5 kg GENERAL: The patient is alert and oriented x3, not in any acute distress. Well developed, well nourished. HEENT: Pupils are round and equally reacting to light. EOMI. No scleral icterus. No conjunctival pallor. Normocephalic, atraumatic. No pharyngeal erythema. No thyromegaly. CARDIOVASCULAR: S1 and S2 present. No murmurs, rubs, or gallops. PULMONARY: Chest is clear to auscultation, no wheezing or crackles. ABDOMEN: Soft, nontender, nondistended, normoactive bowel sounds. No palpable organomegaly. MUSCULOSKELETAL: No joint swelling or deformity. EXTREMITIES: No cyanosis, clubbing, or pedal edema. NEUROLOGICAL: Gross neurological examination did not reveal any focal deficits. SKIN: No rashes. No petechiae Results CBC & Chem 7: 02/08/21 01:43 02/08/21 01:43 Labs: Abnormal Lab Results - Last 24 Hours (Table) 02/08/21 02/08/21 02/08/21 Range/Units 01:43 01:43 03:14 WBC 10.7 H (3.8-10.6) k/uL Chloride 109 H (98-107) mmol/L Glucose 177 H (74-99) mg/dL POC Glucose (mg/dL) 132 H (75-99) mg/dL Troponin I (0.000-0.034) ng/mL 02/08/21 Range/Units 04:07 WBC (3.8-10.6) k/uL Chloride (98-107) mmol/L Glucose (74-99) mg/dL POC Glucose (mg/dL) (75-99) mg/dL Troponin I 1.070 H* (0.000-0.034) ng/mL Assessment and Plan Assessment: Inferior ST elevation myocardial infarction, status post cardiac cath, S/P PCI to second OM branch Nicotine dependence Hypertension Hypothyroidism History of anxiety and depression, no connective tissue Plan: This is a pleasant 50 years old female who presents with inferior STEMI, status post cardiac cath. Follow-up with immersion metalcleaner. Continue with aspirin, Lipitor and Brilinta Patient is counseled to quit smoking, agrees to nicotine patch Labs and medication were reviewed.. Continue same treatment. Continue with symptomatic treatment. Resume home medication. Monitor lytes and vitals. DVT and GI prophylaxis. Further recommendations depends on the clinical course of the patient DVT prophylaxis: Subcutaneous heparin GI Prophylaxis: Pepcid
[2021-02-08 11:07] LABS: Chol/HDL Ratio 3.63; Cholesterol 145 mg/dL (0-200); Triglycerides <50.0 mg/dL (0.0-149.0)
--- NOTE | 2021-02-08 11:33 | ECHOF ---
Referral Reason:mi MEASUREMENTS -------- HEIGHT: 165.1 cm WEIGHT: 90.7 kg BP: 110/75 RVIDd: 2.2 cm (< 3.3) IVSd: 0.9 cm (0.6 - 1.1) LVIDd: 4.4 cm (3.9 - 5.3) LVPWd: 0.9 cm (0.6 - 1.1) IVSs: 1.2 cm LVIDs: 2.7 cm LVPWs: 1.7 cm LAESV Index (A-L): 15.66 ml/m Ao Diam: 2.7 cm (2.0 - 3.7) AV Cusp: 1.9 cm (1.5 - 2.6) LA Diam: 3.0 cm (2.7 - 3.8) MV EXCURSION: 14.577 mm (> 18.000) MV EF SLOPE: 90 mm/s (70 - 150) EPSS: 1.5 cm MV E Ab: 0.69 m/s MV DecT: 236 ms MV A Ab: 0.64 m/s MV E/A Ratio: 1.09 RAP: 5.00 mmHg RVSP: 30.98 mmHg FINDINGS -------- This was a technically good study. The left ventricular size is normal. Left ventricular wall thickness is normal. Overall left vent ricular systolic function is normal with, an EF between 55 - 60 %. The diastolic filling pattern is normal for the age of the patient 10.27. The right ventricle is normal in size. The left atrial size is normal. Normal LA size by volume 22+/-6 ml/m2. The right atrial size is normal. The aortic valve is trileaflet and appears structurally normal. The mitral valve is normal. There is trace mitral regurgitation. The tricuspid valve appears structurally normal. Trace tricuspid regurgitation present. Right james tricular systolic pressure is normal at < 35 mmHg. There is no pulmonic regurgitation present. The aortic root size is normal. Normal inferior vena cava with normal inspiratory collapse consistent with estimated right atrial pre ssure of 5 mmHg. There is no pericardial effusion. CONCLUSIONS -------- 1. The left ventricular size is normal. 2. Left ventricular wall thickness is normal. 3. Overall left ventricular systolic function is normal with, an EF between 55 - 60 %. 4. The diastolic filling pattern is normal for the age of the patient 10.27 5. There is trace mitral regurgitation. 6. Trace tricuspid regurgitation present. 7. There is no pericardial effusion. EVENT SERVICES MANAGER: Maria Esther Lauren RDCS
[2021-02-08] MEDS: NICOTINE 14MG/24HR PATCH TRANSDERM SCH (12:04)
[2021-02-08] MEDS: TICAGRELOR 90 MG TAB PO SCH ×2 (12:04→20:46)
[2021-02-08] MEDS ORDERED: ALPRAZolam 0.25 MG TAB PO PRN (12:06)
[2021-02-08] MEDS ORDERED: ALPRAZolam 0.5 MG TAB PO PRN (12:06)
[2021-02-08] MEDS: MAG HYDROX/AL HYDROX/SIMETH 30 ML CUP PO PRN (16:59)
[2021-02-08 17:03] LABS: Glucose,Whole Blood 84 mg/dL (75-99)
[2021-02-08 20:32] LABS: Glucose,Whole Blood 126 mg/dL (75-99)
[2021-02-08] MEDS: ZOLPIDEM 5 MG TAB PO PRN (22:36)
[2021-02-09 06:20] LABS: Glucose,Whole Blood 96 mg/dL (75-99)
[2021-02-09] MEDS: LEVOTHYROXINE 88 MCG TAB PO SCH (06:55)
[2021-02-09 08:36] LABS: Basophils % (A) 0 %; Eosinophils # (A) 0.2 k/uL (0-0.7); Eosinophils % (A) 2 %; HCT 40.7 % (34.0-46.0); HGB 13.7 gm/dL (11.4-16.0); Lymphocytes # (A) 2.1 k/uL (1.0-4.8); Lymphocytes % (A) 23 %; MCHC 33.6 g/dL (31.0-37.0); MCV 95.2 fL (80.0-100.0); Mean Platelet Volume 8.1; Monocytes # (A) 0.6 k/uL (0-1.0); Monocytes % (A) 7 %; Neutrophils # (A) 5.8 k/uL (1.3-7.7); Neutrophils % (A) 66 %; Platelet Count 285 k/uL (150-450); RBC 4.27 m/uL (3.80-5.40); RDW 12.6 % (11.5-15.5); WBC 8.8 k/uL (3.8-10.6)
[2021-02-09] MEDS: FAMOTIDINE 20 MG/2 ML VIAL IV SCH ×2 (08:40→20:40)
[2021-02-09] MEDS: ASPIRIN 81 MG PO SCH (08:40)
[2021-02-09] MEDS: TICAGRELOR 90 MG TAB PO SCH ×2 (08:41→20:40)
[2021-02-09] MEDS: ATORVASTATIN 80 MG TAB PO SCH (08:41)
[2021-02-09] MEDS: HEPARIN SODIUM,PORCINE/PF 5,000 UNIT/0.5 ML SYRINGE SQ SCH ×2 (08:41→20:40)
[2021-02-09] MEDS: NICOTINE 14MG/24HR PATCH TRANSDERM SCH (08:41)
[2021-02-09] MEDS: lisinopriL 5 MG TAB PO SCH ×2 (08:41→20:40)
[2021-02-09] MEDS: METOPROLOL TARTRATE 25 MG TAB PO SCH ×2 (08:43→20:41)
[2021-02-09] MEDS: ACETAMINOPHEN TAB 325 MG TAB PO PRN ×2 (08:49→20:41)
[2021-02-09 08:57] LABS: African American GFR (CKD) >90 (>60 ml/min/1.73 sqM); Anion Gap 3 mmol/L; Blood Urea Nitrogen 10 mg/dL (7-17); Calcium 8.7 mg/dL (8.4-10.2); Carbon Dioxide 24 mmol/L (22-30); Chloride 112 mmol/L (98-107); Glucose 85 mg/dL (74-99); Non-African American GFR(CKD) 82 (>60 ml/min/1.73 sqM); Potassium 4.4 mmol/L (3.5-5.1); Sodium 139 mmol/L (137-145)
[2021-02-09] MEDS ORDERED: ASPIRIN 325 MG TAB PO SCH (09:00)
--- NOTE | 2021-02-09 10:29 | P.PN ---
Subjective Progress Note Date: 02/09/21 HISTORY OF PRESENT ILLNESS: 50-year-old female who underwent cardiac catheterization yesterday with Dr. Torrez revealing three-vessel coronary artery disease with acutely at occluded OM 2 with significant disease involving [place] circumflex and LAD. She underwent stenting of the second obtuse marginal branch by Dr. Salazar. Patient examined this morning at the bedside. Patient denies chest pain or pressure. She reports shortness of breath and states she feels something she is having a hard time catching her breath. She is on room air with oxygen saturations greater than 92%. BUN 10. Creatinine 0.84. PHYSICAL EXAM: VITAL SIGNS: Reviewed. GENERAL: Well-developed in no acute distress. NECK: Supple. No JVD or thyromegaly LUNGS: Respirations even and unlabored. Lungs essentially clear to auscultation bilaterally. HEART: Regular rate and rhythm. S1 and S2 heard. EXTREMITIES: Normal range of motion. No clubbing or cyanosis. Peripheral pulses intact. No lower extremity edema. Right groin was no hematoma. ASSESSMENT: Status post acute myocardial infarction with acute occlusion of second obtuse marginal branch, status post stenting Known coronary artery disease with prior stenting of LAD and distal left circumflex Hypertension Hyperlipidemia Noncompliance PLAN: Continue current cardiac medications including aspirin, Lipitor, lisinopril, metoprolol, and Brilinta If patient continues to have shortness of breath, she may have to transition from Brilinta to Plavix Patient to undergo cardiac cath tomorrow with Dr. Salazar for PCI of the LAD Further recommendations pending patient course Nurse practitioner note has been reviewed by physician. Signing provider agrees with the documented findings, assessment, and plan of care. Objective - Vital Signs Vital signs: Vital Signs Temp 98.0 F 02/09/21 04:00 Pulse 82 02/09/21 08:00 Resp 16 02/09/21 08:00 BP 106/66 02/09/21 08:00 Pulse Ox 98 02/09/21 08:00 Intake & Output 02/08/21 02/09/21 02/09/21 18:59 06:59 18:59 Intake Total 75 Output Total 800 800 Balance -725 -800 Weight 100.5 kg 100 kg Intake: IV 75 Sodium Chloride 0.9% 1, 75 000 ml @ 75 mls/hr IV . [id number] [facility] Rx#:[id number] Output: Urine 800 800 Other: # Voids 1 1 - Labs CBC & Chem 7: 02/09/21 07:29 02/09/21 07:29 Labs: Abnormal Lab Results - Last 24 Hours (Table) 02/08/21 02/09/21 Range/Units 20:31 07:29 Chloride 112 H (98-107) mmol/L POC Glucose (mg/dL) 126 H (75-99) mg/dL
[2021-02-09 12:16] LABS: Glucose,Whole Blood 103 mg/dL (75-99)
--- NOTE | 2021-02-09 13:21 | P.PN ---
Subjective This is a pleasant 50 years old female with past medical history of coronary artery disease status post stenting, hypertension, hypothyroidism, anxiety and depression. Presents because of one hour chest pain and since admission she has ST elevation with EMS. Her chest pain was severe and she is taken to emergent labor delivery rn with Dr. Torrez and Dr. Salazar, patient status post PCI to the second obtuse marginal branch. Currently she is in the ICU with close monitoring. She denies any symptoms. No chest pain or dyspnea. No abdominal pain. No fever. No urinary complaints She smokes a pack every 4 days, she denies alcohol or illicit tracts Vitals are stable Labs are reviewed and they are unremarkable CBC, BMP, liver enzymes, proBNP is 67, troponin is less than 0.01 and 1.07. Chest x-ray: No acute process. EKG showing ST elevation in the inferior limits with heart rate of 80 bpm and QTC 461. Patient currently is placed on aspirin, Lipitor and Brilinta 02/09/2021 Patient with no chest pain or dyspnea. No other complaints. Patient is back to her normal self. Hemodynamically and labs are stable. Echocardiogram showed ejection fraction of 55-60% Patient is currently on aspirin and Brilinta Medical Assistant Instructor team are planning for a second cardiac cath tomorrow and possible stenting of the LAD. Objective - Vital Signs Vital signs: Vital Signs Temp 98.0 F 02/09/21 04:00 Pulse 77 02/09/21 12:00 Resp 16 02/09/21 12:00 BP 110/75 02/09/21 12:00 Pulse Ox 98 02/09/21 12:00 Intake & Output 02/08/21 02/09/21 02/09/21 18:59 06:59 18:59 Intake Total 75 Output Total 800 800 Balance -725 -800 Weight 100.5 kg 100 kg Intake: IV 75 Sodium Chloride 0.9% 1, 75 000 ml @ 75 mls/hr IV . [id number] [facility] Rx#:[id number] Output: Urine 800 800 Other: # Voids 1 1 - Exam GENERAL: The patient is alert and oriented x3, not in any acute distress. Well developed, well nourished. HEENT: Pupils are round and equally reacting to light. EOMI. No scleral icterus. No conjunctival pallor. Normocephalic, atraumatic. No pharyngeal erythema. No thyromegaly. CARDIOVASCULAR: S1 and S2 present. No murmurs, rubs, or gallops. PULMONARY: Chest is clear to auscultation, no wheezing or crackles. ABDOMEN: Soft, nontender, nondistended, normoactive bowel sounds. No palpable organomegaly. MUSCULOSKELETAL: No joint swelling or deformity. EXTREMITIES: No cyanosis, clubbing, or pedal edema. NEUROLOGICAL: Gross neurological examination did not reveal any focal deficits. SKIN: No rashes. no petechiae. - Labs CBC & Chem 7: 02/09/21 07:29 02/09/21 07:29 Labs: Abnormal Lab Results - Last 24 Hours (Table) 02/08/21 02/09/21 02/09/21 Range/Units 20:31 07:29 11:48 Chloride 112 H (98-107) mmol/L POC Glucose (mg/dL) 126 H 103 H (75-99) mg/dL Assessment and Plan Assessment: Inferior ST elevation myocardial infarction, status post cardiac cath, S/P PCI to second OM branch Nicotine dependence Hypertension Hypothyroidism History of anxiety and depression, no connective tissue Plan: This is a pleasant 50 years old female who presents with inferior STEMI, status post cardiac cath. Follow-up with long distance operator. Continue with aspirin, Lipitor and Brilinta Possible PCI to LAD tomorrow Patient is counseled to quit smoking, agrees to nicotine patch Labs and medication were reviewed.. Continue same treatment. Continue with symptomatic treatment. Resume home medication. Monitor lytes and vitals. DVT and GI prophylaxis. Further recommendations depends on the clinical course of the patient DVT prophylaxis: Subcutaneous heparin GI Prophylaxis: Pepcid
[2021-02-09 17:13] LABS: Glucose,Whole Blood 90 mg/dL (75-99)
[2021-02-09] MEDS: ZOLPIDEM 5 MG TAB PO PRN (23:06)
[2021-02-10] MEDS: ASPIRIN 81 MG PO SCH (05:29)
[2021-02-10] MEDS: ATORVASTATIN 80 MG TAB PO SCH (05:30)
[2021-02-10] MEDS: HEPARIN SODIUM,PORCINE/PF 5,000 UNIT/0.5 ML SYRINGE SQ SCH ×2 (05:31→21:11)
[2021-02-10] MEDS: LEVOTHYROXINE 88 MCG TAB PO SCH (05:39)
[2021-02-10] MEDS: FAMOTIDINE 20 MG/2 ML VIAL IV SCH ×2 (05:39→21:21)
[2021-02-10] MEDS: METOPROLOL TARTRATE 25 MG TAB PO SCH ×2 (05:39→21:22)
[2021-02-10] MEDS: lisinopriL 5 MG TAB PO SCH ×2 (05:40→21:21)
[2021-02-10] MEDS: TICAGRELOR 90 MG TAB PO SCH ×2 (05:40→21:22)
[2021-02-10 06:40] LABS: Chol/HDL Ratio 3.83; LDL Cholesterol,Calculated 81.2 mg/dL (0.0-131.0); VLDL Calculation 20.8 mg/dL (5.00-40.00)
[2021-02-10] MEDS ORDERED: ATORVASTATIN 80 MG TAB PO ONE (07:00)
[2021-02-10] MEDS ORDERED: ASPIRIN 325 MG TAB PO ONE (07:00)
[2021-02-10] MEDS ORDERED: HEPARIN SODIUM,PORCINE 10,000 UNIT in SODIUM CHLORIDE 0.9% 1,000 ML IRRIGATION PRN (07:00)
[2021-02-10] MEDS ORDERED: HEPARIN SODIUM,PORCINE 2,500 UNIT in SODIUM CHLORIDE 0.9% 250 ML IRRIGATION PRN (07:00)
[2021-02-10] MEDS ORDERED: SODIUM CHLORIDE 0.9% 1,000 ML in EMPTY BAG 1 BAG IV ONE (07:00)
[2021-02-10] MEDS ORDERED: IV FLUID CONTINUATION 700 ML IV ONE (09:00)
[2021-02-10] MEDS ORDERED: fentaNYL (PF) 50 MCG/ML 2 ML AMP ONE (09:07)
[2021-02-10] MEDS ORDERED: LIDOCAINE 1% INJ 10MG/ML (20 ML MDV) ONE (09:07)
[2021-02-10] MEDS ORDERED: HEPARIN SODIUM 1,000 UN/ML (10ML VL) ONE (09:07)
[2021-02-10] MEDS ORDERED: VERAPAMIL 2.5 MG/ML 2 ML AMP ONE (09:07)
[2021-02-10] MEDS: fentaNYL (PF) 50 MCG/ML 2 ML AMP IV ONE ×3 (09:26→10:38)
[2021-02-10] MEDS ORDERED: LIDOCAINE 1% INJ 10MG/ML (20 ML MDV) SQ ONE (09:32)
[2021-02-10] MEDS: MIDAZOLAM 2 MG/2 ML VIAL IV ONE ×2 (09:32→10:31)
[2021-02-10] MEDS ORDERED: VERAPAMIL SYRINGE (5 MG/10 ML) INTRAARTER ONE (09:33)
[2021-02-10] MEDS ORDERED: HEPARIN SODIUM 1,000 UN/ML (10ML VL) IV ONE (09:37)
[2021-02-10] MEDS: NITROGLYCERIN 1000MCG/10ML SYRINGE INTRACORON ONE ×2 (09:43→10:15)
[2021-02-10] MEDS ORDERED: IOPAMIDOL-370 100ML BTL INJ ONE ×3 (09:53→10:42)
[2021-02-10] MEDS ORDERED: HYDROmorphone 0.5 MG/0.5 ML SYRINGE IVP ONE (09:53)
[2021-02-10] MEDS ORDERED: ONDANSETRON 4 MG/2 ML VIAL ONE (10:47)
[2021-02-10] MEDS ORDERED: ONDANSETRON 4 MG/2 ML VIAL IVP ONE (10:49)
[2021-02-10] MEDS ORDERED: NITROGLYCERIN SL TABS 0.4 MG TAB SUBLINGUAL PRN (11:02)
[2021-02-10] MEDS ORDERED: MAG HYDROX/AL HYDROX/SIMETH 30 ML CUP PO PRN (11:02)
[2021-02-10] MEDS ORDERED: RX INFO: IV CONTRAST WAS GIVEN 1 EACH MISC MISCELLANE PRN (11:02)
[2021-02-10] MEDS ORDERED: ATROPINE SULFATE 0.1 MG/ML 10ML SYRINGE IV PRN (11:02)
[2021-02-10] MEDS ORDERED: SODIUM CHLORIDE 0.9% 1,000 ML IV SCH (11:15)
--- NOTE | 2021-02-10 11:29 | CC ---
CARDIAC CATHETERIZATION REPORT HISTORY: The patient is a 50-year-old female with a known history of coronary artery disease status post percutaneous revascularization in 2017, who presented 48 hours ago with an acute inferior myocardial infarction with totally occluded obtuse marginal branch, underwent stenting of that vessel. At that time was found to have significant stenosis involving the LAD. In view of that, recommendation was made regarding angioplasty and stenting. The procedure as well as the risks and the complications were discussed with the patient who is in full understanding and agreement. PROCEDURE: Patient was brought to the computer laboratory technician in a fasting semi-sedated state after receiving fentanyl and Benadryl and achieving moderate conscious sedated state, a 6-Setswana EBU 3.75 guiding catheter introduced in the system. In the left main a 0.014 balanced medium weight J-wire was advanced across the lesion positioned distally. Then a 2.5 x 12 mm NC Trek balloon was advanced and inflation in the stenotic area was performed at maximum of 12 atmospheres. Following that, the balloon was removed and a 2.75 x 18 mm Xience Giovanna stent was advanced, deployed and post dilated at 16 atmospheres. Following that the balloon was removed. There was occlusion of small diagonal branch, multiple attempts to cannulate that branch using the a 0.014 balanced medium weight J- wire as well as a whisper J-wire with the help of a microcatheter were unsuccessful. At that point, the whisper J-wire was removed and a 3.0 x 33 mm Xience Giovanna stent was deployed proximal to the first one and post dilated at 16 atmospheres. Following that, an intravascular ultrasound [facility] [place] was introduced and images were obtained. Following that, a 3.0 x 12 mm NC Trek balloon was advanced and inflation distal stent were performed at maximum of 12 atmospheres. Following that, the balloon was removed and a 3.75 x 15 mm long NC Trek balloon was advanced and inflation n the proximal stent was performed maximum of 12 atmospheres. After the last inflation, after appropriate wait, the balloon and the guidewire were withdrawn back in the guiding catheter. Images were obtained revealing stable successful stenting. At that point, the guiding catheter, the balloon and the guidewire were removed. The sheath was removed. Hemostasis was obtained with deployment of a TR band. There was no immediate complication. Patient returned to her room in stable condition. Of note, the patient received 7000 units of intravenous heparin as well as intra-arterial verapamil. She was continued on Brilinta. She had chest discomfort and EKG changes that improved at the end the procedure. RESULT: 1. Successful stenting of the mid LAD with reduction of stenosis from 80% to 0%. 2. Successful stenting of the proximal LAD with reduction of stenosis from 70% to 0%. 3. Intravascular ultrasound was performed to optimize the imaging. 4. Closure of small diagonal branch. RECOMMENDATIONS: Patient will be continued on aspirin, Brilinta, beta blockers and statin. The importance of dual antiplatelet treatment were discussed with the patient who is in full understanding and agreement. DURATION OF SEDATION: 74 minutes. MMODL / IJN: [id number] /
--- NOTE | 2021-02-10 11:37 | LTR ---
February 10, 2021 Dr. Bond, I had the opportunity to perform coronary angioplasty and stenting on this patient at [facility] on the 10 of February and a full copy of the procedure note will be forwarded to you. In brief, she underwent successful stenting of proximal and mid LAD, and I an hopeful that this procedure will stabilize her status. Thank you again for allowing me to participate in this patient's care. Please feel free to call with any questions. Sincerely, Nimo Salazar MD MMCHRISTINEL / CHION: [id number] / WINIFRED
[2021-02-10] MEDS: NICOTINE 14MG/24HR PATCH TRANSDERM SCH (12:07)
[2021-02-10] MEDS: ISOSORBIDE MONONITRATE ER 30 MG TAB.ER.24H PO SCH (12:07)
[2021-02-10] MEDS: ACETAMINOPHEN TAB 325 MG TAB PO PRN ×3 (12:21→21:20)
[2021-02-10 14:50] VITALS: BMI 31.5
[2021-02-10] MEDS: MAG HYDROX/AL HYDROX/SIMETH 30 ML CUP PO PRN (15:44)
--- NOTE | 2021-02-10 20:50 | P.PN ---
Subjective This is a pleasant 50 years old female with past medical history of coronary artery disease status post stenting, hypertension, hypothyroidism, anxiety and depression. Presents because of one hour chest pain and since admission she has ST elevation with EMS. Her chest pain was severe and she is taken to emergent laboratory animal facility supervisor with Dr. Torrez and Dr. Salazar, patient status post PCI to the second obtuse marginal branch. Currently she is in the ICU with close monitoring. She denies any symptoms. No chest pain or dyspnea. No abdominal pain. No fever. No urinary complaints She smokes a pack every 4 days, she denies alcohol or illicit tracts Vitals are stable Labs are reviewed and they are unremarkable CBC, BMP, liver enzymes, proBNP is 67, troponin is less than 0.01 and 1.07. Chest x-ray: No acute process. EKG showing ST elevation in the inferior limits with heart rate of 80 bpm and QTC 461. Patient currently is placed on aspirin, Lipitor and Brilinta 02/09/2021 Patient with no chest pain or dyspnea. No other complaints. Patient is back to her normal self. Hemodynamically and labs are stable. Echocardiogram showed ejection fraction of 55-60% Patient is currently on aspirin and Brilinta Manager Mobility team are planning for a second cardiac cath tomorrow and possible stenting of the LAD. 02/10/2021 Patient in the morning was complaining of from dyspnea while at rest. No paroxysmal nocturnal dyspnea, no orthopnea. Patient underwent second cardiac cath with Dr. Salazar, patient status post PCI to the LAD 2. It looks like the patient tolerated the procedure well Due to the seat is back to normal at 1K. Blood pressure is acceptable. Patient continued on aspirin and Brilinta and statin and metoprolol. Possible discharge in 24-48 hours if she keeps improving and cleared by leaf conditioner helper Objective - Vital Signs Vital signs: Vital Signs Temp 98.1 F 02/10/21 08:00 Pulse 75 02/10/21 16:00 Resp 18 02/10/21 16:00 BP 115/66 02/10/21 16:00 Pulse Ox 95 02/10/21 16:00 Intake & Output 02/10/21 02/10/21 02/11/21 06:59 18:59 06:59 Intake Total 608 Balance 608 Weight 85.9 kg 85.9 kg Intake: IV 250 Oral 358 Other: # Voids 1 1 - Exam GENERAL: The patient is alert and oriented x3, not in any acute distress. Well developed, well nourished. HEENT: Pupils are round and equally reacting to light. EOMI. No scleral icterus. No conjunctival pallor. Normocephalic, atraumatic. No pharyngeal erythema. No thyromegaly. CARDIOVASCULAR: S1 and S2 present. No murmurs, rubs, or gallops. PULMONARY: Chest is clear to auscultation, no wheezing or crackles. ABDOMEN: Soft, nontender, nondistended, normoactive bowel sounds. No palpable organomegaly. MUSCULOSKELETAL: No joint swelling or deformity. EXTREMITIES: No cyanosis, clubbing, or pedal edema. NEUROLOGICAL: Gross neurological examination did not reveal any focal deficits. SKIN: No rashes. no petechiae. - Labs CBC & Chem 7: 02/09/21 07:29 02/09/21 07:29 Labs: Abnormal Lab Results - Last 24 Hours (Table) 02/09/21 Range/Units 07:29 HDL Cholesterol 36.0 L (40.0-60.0) mg/dL Assessment and Plan Assessment: Inferior ST elevation myocardial infarction, status post cardiac cath, S/P PCI to second OM branch (02/08), PCI to LAD 2 (02/10) Nicotine dependence Hypertension Hypothyroidism History of anxiety and depression, no connective tissue Plan: This is a pleasant 50 years old female who presents with inferior STEMI, status post cardiac cath. Follow-up with leaf conditioner helper. Continue with aspirin, Lipitor and Brilinta Possible PCI to LAD tomorrow Patient is counseled to quit smoking, agrees to nicotine patch Labs and medication were reviewed.. Continue same treatment. Continue with symptomatic treatment. Resume home medication. Monitor lytes and vitals. DVT and GI prophylaxis. Further recommendations depends on the clinical course of t he patient DVT prophylaxis: Subcutaneous heparin GI Prophylaxis: Pepcid
[2021-02-10] MEDS: ZOLPIDEM 5 MG TAB PO PRN ×2 (21:24→21:28)
[2021-02-11] MEDS: LEVOTHYROXINE 88 MCG TAB PO SCH (06:10)
[2021-02-11] MEDS: ATORVASTATIN 80 MG TAB PO SCH (08:37)
[2021-02-11] MEDS: HEPARIN SODIUM,PORCINE/PF 5,000 UNIT/0.5 ML SYRINGE SQ SCH ×2 (08:37→21:07)
[2021-02-11] MEDS: FAMOTIDINE 20 MG/2 ML VIAL IV SCH ×2 (08:37→20:59)
[2021-02-11] MEDS: ASPIRIN 81 MG PO SCH (08:37)
[2021-02-11] MEDS: TICAGRELOR 90 MG TAB PO SCH ×2 (08:38→20:59)
[2021-02-11] MEDS: lisinopriL 5 MG TAB PO SCH ×2 (08:38→20:59)
[2021-02-11] MEDS: METOPROLOL TARTRATE 25 MG TAB PO SCH ×2 (08:38→20:59)
[2021-02-11] MEDS: ISOSORBIDE MONONITRATE ER 30 MG TAB.ER.24H PO SCH (08:38)
[2021-02-11] MEDS: NICOTINE 14MG/24HR PATCH TRANSDERM SCH (08:38)
[2021-02-11] MEDS: ACETAMINOPHEN TAB 325 MG TAB PO PRN ×2 (08:40→18:32)
[2021-02-11 10:28] LABS: Calcium 8.6 mg/dL (8.4-10.2); Potassium 4.2 mmol/L (3.5-5.1)
--- NOTE | 2021-02-11 11:47 | PN ---
PROGRESS NOTE HISTORY: Ms. Rendon is a 50-year-old female who presented with a ST-segment elevation myocardial infarction. Underwent stenting of her obtuse marginal branch that was totally occluded, was found to have significant disease in the LAD. Underwent stenting of the LAD yesterday. She is doing well this morning. She denies any chest pain. Her breathing is stable. She denies any dizziness or palpitations. She denies any nausea. She has been ambulating without much difficulty. She continues to be at this time on aspirin once a day, Brilinta 90 mg twice a day, atorvastatin 80 mg daily, isosorbide mononitrate 30 mg daily, lisinopril 5 mg twice a day, metoprolol tartrate 25 mg twice a day. PHYSICAL EXAMINATION: Blood pressure 118/70 with a heart rate in the 80s. LUNGS: Clear. HEART: Regular rate and rhythm S1, S2. No S3. No rub. ABDOMEN: Soft nontender. EXTREMITIES: No edema. Right radial pulse intact. EKG shows no acute changes. IMPRESSION: 1. Status post stenting of the LAD. 2. Status post stenting of the obtuse marginal branch in the setting of an acute myocardial infarction. 3. Hypertension. 4. Hyperlipidemia. RECOMMENDATIONS: Patient should be able to be discharged home today and followed as an outpatient with Dr. Torrez. MMCHRISTINEL / CHION: [id number] /
--- NOTE | 2021-02-11 20:51 | P.PN ---
Subjective This is a pleasant 50 years old female with past medical history of coronary artery disease status post stenting, hypertension, hypothyroidism, anxiety and depression. Presents because of one hour chest pain and since admission she has ST elevation with EMS. Her chest pain was severe and she is taken to emergent cath lab technologist with Dr. Torrez and Dr. Salazar, patient status post PCI to the second obtuse marginal branch. Currently she is in the ICU with close monitoring. She denies any symptoms. No chest pain or dyspnea. No abdominal pain. No fever. No urinary complaints She smokes a pack every 4 days, she denies alcohol or illicit tracts Vitals are stable Labs are reviewed and they are unremarkable CBC, BMP, liver enzymes, proBNP is 67, troponin is less than 0.01 and 1.07. Chest x-ray: No acute process. EKG showing ST elevation in the inferior limits with heart rate of 80 bpm and QTC 461. Patient currently is placed on aspirin, Lipitor and Brilinta 02/09/2021 Patient with no chest pain or dyspnea. No other complaints. Patient is back to her normal self. Hemodynamically and labs are stable. Echocardiogram showed ejection fraction of 55-60% Patient is currently on aspirin and Brilinta Internet [employer] Intern team are planning for a second cardiac cath tomorrow and possible stenting of the LAD. 02/10/2021 Patient in the morning was complaining of from dyspnea while at rest. No paroxysmal nocturnal dyspnea, no orthopnea. Patient underwent second cardiac cath with Dr. Salazar, patient status post PCI to the LAD 2. It looks like the patient tolerated the procedure well Due to the seat is back to normal at 1K. Blood pressure is acceptable. Patient continued on aspirin and Brilinta and statin and metoprolol. Possible discharge in 24-48 hours if she keeps improving and cleared by elementary reading tutor 02/11/2021 Patient is doing well, with no chest pain or dyspnea Continue with dual antiplatelet therapy and patient is consult Possible discharge in the morning Objective - Vital Signs Vital signs: Vital Signs Temp 98.0 F 02/11/21 08:00 Pulse 84 02/11/21 16:00 Resp 16 02/11/21 16:00 BP 130/67 02/11/21 16:00 Pulse Ox 98 02/11/21 16:00 Intake & Output 02/11/21 02/11/21 02/12/21 06:59 18:59 06:59 Intake Total 478 Balance 478 Weight 86 kg Intake: Oral 478 Other: Voiding Method Toilet Toilet # Voids 1 3 1 - Exam GENERAL: The patient is alert and oriented x3, not in any acute distress. Well developed, well nourished. HEENT: Pupils are round and equally reacting to light. EOMI. No scleral icterus. No conjunctival pallor. Normocephalic, atraumatic. No pharyngeal erythema. No thyromegaly. CARDIOVASCULAR: S1 and S2 present. No murmurs, rubs, or gallops. PULMONARY: Chest is clear to auscultation, no wheezing or crackles. ABDOMEN: Soft, nontender, nondistended, normoactive bowel sounds. No palpable organomegaly. MUSCULOSKELETAL: No joint swelling or deformity. EXTREMITIES: No cyanosis, clubbing, or pedal edema. NEUROLOGICAL: Gross neurological examination did not reveal any focal deficits. SKIN: No rashes. no petechiae. - Labs CBC & Chem 7: 02/09/21 07:29 02/11/21 09:32 Labs: Abnormal Lab Results - Last 24 Hours (Table) 02/11/21 Range/Units 09:32 Chloride 111 H (98-107) mmol/L Glucose 113 H (74-99) mg/dL Assessment and Plan Assessment: Inferior ST elevation myocardial infarction, status post cardiac cath, S/P PCI to second OM branch (02/08), PCI to LAD 2 (02/10) Nicotine dependence Hypertension Hypothyroidism History of anxiety and depression, no connective tissue Plan: This is a pleasant 50 years old female who presents with inferior STEMI, status post cardiac cath. Follow-up with elementary reading tutor. Continue with aspirin, Lipitor and Brilinta Possible PCI to LAD tomorrow Patient is counseled to quit smoking, agrees to nicotine patch Labs and medication were reviewed.. Continue same treatment. Continue with symptomatic treatment. Resume home medication. Monitor lytes and vitals. DVT and GI prophylaxis. Further recommendations depends on the clinical course of the patient DVT prophylaxis: Subcutaneous heparin GI Prophylaxis: Pepcid
[2021-02-11] MEDS: ZOLPIDEM 5 MG TAB PO PRN (23:16)
[2021-02-12 04:38] VITALS: TEMP 98.3
[2021-02-12] MEDS: LEVOTHYROXINE 88 MCG TAB PO SCH (06:02)
[2021-02-12 07:57] VITALS: BP 106/69; PULSE 83; RESP 16
[2021-02-12] MEDS: ASPIRIN 81 MG PO SCH (07:58)
[2021-02-12] MEDS: ISOSORBIDE MONONITRATE ER 30 MG TAB.ER.24H PO SCH (07:59)
[2021-02-12] MEDS: lisinopriL 5 MG TAB PO SCH (07:59)
[2021-02-12] MEDS: NICOTINE 14MG/24HR PATCH TRANSDERM SCH (07:59)
[2021-02-12] MEDS: METOPROLOL TARTRATE 25 MG TAB PO SCH (07:59)
[2021-02-12] MEDS: ATORVASTATIN 80 MG TAB PO SCH (07:59)
[2021-02-12] MEDS: TICAGRELOR 90 MG TAB PO SCH (07:59)
[2021-02-12] MEDS: HEPARIN SODIUM,PORCINE/PF 5,000 UNIT/0.5 ML SYRINGE SQ SCH (07:59)
[2021-02-12] MEDS: FAMOTIDINE 20 MG/2 ML VIAL IV SCH (07:59)
[2021-02-12] MEDS: ACETAMINOPHEN TAB 325 MG TAB PO PRN (08:00)
--- NOTE | 2021-02-12 11:07 | PN ---
PROGRESS NOTE Mrs. Rendon is a 50-year-old female with known history or coronary artery disease who presented with an acute myocardial infarction. Had a totally occluded to the obtuse marginal that was stented and she had significant disease in the LAD. Subsequently had staged procedure. She is doing well this morning, ambulating without difficulty. Denying any chest pain. No dizziness. No palpitation. She denies any nausea. She continues on aspirin once a day, Lipitor 80 mg daily, isosorbide mononitrate 30 mg daily, lisinopril 5 mg twice a day, metoprolol tartrate 25 mg twice a day, and Brilinta 90 mg twice a day. PHYSICAL EXAMINATION: Blood pressure 106/60 with a heart rate in the 80s. LUNGS: Clear. HEART: Regular rate and rhythm. S1, S2. No S3. No rub. ABDOMEN: Soft and nontender. EXTREMITIES: No edema. IMPRESSION: 1. Status post myocardial infarction and stenting of the left circumflex and subsequently the left anterior descending in a staged procedure. 2. History of hypertension. 3. Hyperlipidemia. RECOMMENDATION: Patient should be able to be discharged home today on the present medical regimen and follow up as an outpatient with Dr. Torrez. I have discussed with her the importance of dietary control and compliance with followup. MMODL / IJN: [id number] /
[2021-02-12] MEDS ORDERED: FAMOTIDINE 20 MG TAB PO SCH (21:00)
--- NOTE | 2021-02-14 20:52 | P.DS ---
Providers Date of admission: 02/08/21 01:34 Attending physician: Monty Moore Consults: 02/08/21 01:34 Consult Physician Urgent Consulting Provider: Nimo Salazar Consult Reason/Comments: stemi Do you want consulting provider notified?: Yes 02/08/21 03:03 Consult Physician Routine Consulting Provider: Alison Rucker Consult Reason/Comments: Post Interventional patient Do you want consulting provider notified?: Already Contacted 02/10/21 11:02 Consult Physician Routine Consulting Provider: Alison Rucker Consult Reason/Comments: Post Interventional patient Do you want consulting provider notified?: Already Contacted Primary care physician: Arely Bond Hospital Course: Diagnoses: Acute Inferior ST elevation myocardial infarction, status post cardiac cath, S/P PCI to second OM branch (02/08),& PCI to LAD 2 (02/10) Nicotine dependence Hypertension Hypothyroidism History of anxiety and depression, no connective tissue Hospital course: This is a pleasant 50 years old female with past medical history of coronary artery disease status post stenting, hypertension, hypothyroidism, anxiety and depression. Presents because of one hour chest pain and since admission she has S patient T elevation with EMS. Her chest pain was severe and she is taken to emergent film laboratory technician with Dr. Torrez and Dr. Salazar, patient status post PCI to the second obtuse marginal branch on 02/08 and continue to complain from dyspnea at rest, another cardiac cath was done on and PCI placed to the LAD 2. After the procedure no chest pain or dyspnea. No other complaints. Patient was cleared for discharge by quality assurance consultant and patient was eager to go home Problems and management plan were discussed with the patient and he verbalized understanding and acceptance Patient was found stable and can be discharged home however he needs follow-up as an outpatient. Patient was instructed to follow up with PCP Dr. Bond within one week and patient agrees Patient also was instructed to follow up with her quality assurance consultant Dr. Torrez in one week and she agrees Physical exam Gen: patient is a AAOx3, no distress CVS: S1-S2, RRR, no murmur Lungs: B/L CTA, no wheezing Abdomen: soft, no distention, no tenderness, positive bowel sounds Extremity: no leg edema or induration Time spent more than 35 minutes Patient Condition at Discharge: Serious Plan - Discharge Summary Discharge Rx Participant: Yes New Discharge Prescriptions: New Isosorbide Mononitrate ER [Imdur] 30 mg PO DAILY #90 tab.er.24h lisinopriL [Zestril] 5 mg PO BID #90 tab Nicotine 14Mg/24Hr Patch [Habitrol] 1 patch TRANSDERM DAILY #10 patch Ticagrelor [Brilinta] 90 mg PO BID 30 Days #60 tab Aspirin 81 mg PO DAILY chew Metoprolol Tartrate [Lopressor] 25 mg PO BID #180 tab Nitroglycerin Sl Tabs [Nitrostat] 0.4 mg SUBLINGUAL Q5M PRN #25 tab PRN Reason: Chest Pain Ticagrelor [Brilinta] 90 mg PO BID #60 tab Continue Atorvastatin [Lipitor] 40 mg PO DAILY Levothyroxine Sodium [Euthyrox] 88 mcg PO DAILY Discontinued Aspirin EC [Ecotrin] 325 mg PO DAILY Lisinopril-Hctz 20-12.5 mg [Zestoretic 20-12.5] 1 tab PO DAILY Discharge Medication List Atorvastatin [Lipitor] 40 mg PO DAILY 02/08/21 [History] Levothyroxine Sodium [Euthyrox] 88 mcg PO DAILY 02/08/21 [History] Ticagrelor [Brilinta] 90 mg PO BID 30 Days #60 tab 02/08/21 [Rx] Aspirin 81 mg PO DAILY chew 02/11/21 [Rx] Isosorbide Mononitrate ER [Imdur] 30 mg PO DAILY #90 tab.er.24h 02/11/21 [Rx] Metoprolol Tartrate [Lopressor] 25 mg PO BID #180 tab 02/11/21 [Rx] Nitroglycerin Sl Tabs [Nitrostat] 0.4 mg SUBLINGUAL Q5M PRN #25 tab 02/11/21 [Rx] lisinopriL [Zestril] 5 mg PO BID #90 tab 02/11/21 [Rx] Nicotine 14Mg/24Hr Patch [Habitrol] 1 patch TRANSDERM DAILY #10 patch 02/12/21 [Rx] Ticagrelor [Brilinta] 90 mg PO BID #60 tab 02/12/21 [Rx] Follow up Appointment(s)/Referral(s): Rehab [facility],Cardiac [NON-STAFF] - 1 Week (After discharge, you will follow- up with your quality assurance consultant. Once you have obtained a prescription for cardiac r ehab, please call [phone] to set up an evaluation.) Arely Bond MD [Primary Care Provider] - 1-2 days Sharif Torrez MD [STAFF PHYSICIAN] - 1 Week Patient Instructions/Handouts: *Surgery [facility] - After Heart Catheterization - Leather Belt Shaper Instructions, Heart Attack (DC), Heart Catheterization (DC) Activity/Diet/Wound Care/Special Instructions: heart heathy diet activity is restricted till you see your doctor Discharge Disposition: HOME SELF-CARE
== END 2021-02-12 10:55 | disposition home or self-care (01) | DRG 247 ==
LOC: EC 01:28 → 2SICU 01:34 → 3SCARD 14:45
PROVIDERS: ADMIT Hospitalist; ATTEND Hospitalist
PROC: 027034Z Dilation of Coronary Artery, One Artery with Drug-eluting Intraluminal Device, Percutaneous Approach (ICD-10-PCS; principal; 2021-02-08 01:57)
PROC: 4A023N7 Measurement of Cardiac Sampling and Pressure, Left Heart, Percutaneous Approach (ICD-10-PCS; 2021-02-08 01:57)
PROC: B2111ZZ Fluoroscopy of Multiple Coronary Arteries using Low Osmolar Contrast (ICD-10-PCS; 2021-02-08 01:57)
PROC: 4A023N7 Measurement of Cardiac Sampling and Pressure, Left Heart, Percutaneous Approach (ICD-10-PCS; 2021-02-10)
PROC: 027135Z Dilation of Coronary Artery, Two Arteries with Two Drug-eluting Intraluminal Devices, Percutaneous Approach (ICD-10-PCS; 2021-02-10)
PROC: B2111ZZ Fluoroscopy of Multiple Coronary Arteries using Low Osmolar Contrast (ICD-10-PCS; 2021-02-10)
DX: I21.19 ST elevation (STEMI) myocardial infarction involving other coronary artery of inferior wall (principal); E78.5 Hyperlipidemia, unspecified; E89.0 Postprocedural hypothyroidism; F17.210 Nicotine dependence, cigarettes, uncomplicated; F32.9 Major depressive disorder, single episode, unspecified; F41.9 Anxiety disorder, unspecified; I10 Essential (primary) hypertension; I25.10 Atherosclerotic heart disease of native coronary artery without angina pectoris; I25.2 Old myocardial infarction; Z79.02 Long term (current) use of antithrombotics/antiplatelets; Z79.82 Long term (current) use of aspirin; Z79.890 Hormone replacement therapy; Z79.899 Other long term (current) drug therapy; Z91.19 Patient's noncompliance with other medical treatment and regimen; Z20.822 Contact with and (suspected) exposure to COVID-19
CPT/HCPCS: 71045; 80048; 80053; 80061; 83735; 83880; 84484; 85025; 85610; 85730; 87635; 92978; 93005; 93306; 93458; 99291